=== PATIENT | female | born 1945 | race Caucasian/White ===

== ENCOUNTER 2020-09-21 15:22 | Outpatient (CLI) | payer MEDICARE, SELFPAY ==
--- NOTE | ~2020-09-21 | XR_ITS ---
XR lumbar spine 2-3V DATE: 09/21/2020 15:37 INDICATION: Low back pain radiating to both hips and legs TECHNIQUE: AP, lateral, coned lateral lumbosacral views COMPARISON: None FINDINGS: Diffuse osteopenia. Moderate levoscoliosis of the thoracolumbar spine. There is prominent degenerative change in the lowe r thoracic spine and moderate to moderately severe degenerative disc disease. The lumbar and lumbosac ral spine. No fracture or bone destruction or spondylolisthesis of the lumbar spine is evident. The lumbar pedic les appear intact. The sacroiliac joints appear intact. IMPRESSION: Moderate levoscoliosis of the thoracolumbar spine Multilevel degenerative disc disease of the lumbar spine Reviewed, dictated and finalized at location A.
== END 2020-09-21 15:23 | disposition home or self-care (01) ==
LOC: ANHIMG 15:26
PROVIDERS: PCP Family Medicine; Visit Provider Family Medicine
DX: M54.5 Low back pain (principal); M41.85 Other forms of scoliosis, thoracolumbar region; M51.36 Other intervertebral disc degeneration, lumbar region
CPT/HCPCS: 72100

== ENCOUNTER 2022-03-28 09:58 | Outpatient (CLI) | payer MEDICARE, SELFPAY ==
[2022-03-28 10:25] LABS: Alanine Aminotransferase 19 U/L (6-35); Albumin Level 4.4 g/dL (3.5-5.1); Alkaline Phosphatase 62 U/L (38-126); Anion Gap 5 mmol/L (8-16); Aspartate Amino Transferase 25 U/L (14-36); Bilirubin,Total 0.7 mg/dL (0.2-1.3); Blood Urea Nitrogen 17 mg/dL (7-17); Calcium 9.1 mg/dL (8.4-10.2); Carbon Dioxide 31 mmol/L (22-30); Chloride 98 mmol/L (98-107); Estimated Glomerular Filt Rate > 60; Glucose 98 mg/dL (65-110); Potassium 3.7 mmol/L (3.4-5.0); Sodium 134 mmol/L (137-145)
[2022-03-28 10:56] LABS: Thyroid Stimulating Hormone 0.696 uIU/mL (0.465-4.680)
== END 2022-03-28 09:59 | disposition home or self-care (01) ==
LOC: ANHLAB 10:00
PROVIDERS: PCP Family Medicine; Visit Provider Family Medicine
DX: E03.9 Hypothyroidism, unspecified (principal); I10 Essential (primary) hypertension
CPT/HCPCS: 36415; 80053; 84443

== ENCOUNTER 2022-04-28 10:00 | Outpatient (CLI) | payer MEDICARE, SELFPAY ==
--- NOTE | ~2022-04-28 | US_ITS ---
Duplex Sonography of the left extremity: Indication: Pain and swelling Findings: Sagittal and transverse B-mode images as well as color-flow imaging were performed on the l eft femoral and popliteal veins. B-mode examination was done without and with compression in the tra nsverse plane. There is good visualization of the common femoral, proximal profunda femoral, superfi cial femoral, greater saphenous, and popliteal veins. Normal flow was seen on color-flow imaging. No rmal compressibility was demonstrated. Varicose veins noted. Impression: No evidence of deep vein thrombosis involving the left femoral, greater saphenous, superficial femora l, or popliteal veins. Varicose veins noted. Reviewed, dictated and finalized at location M. E EPIDEMIOLOGIST Impression: No evidence of deep vein thrombosis involving the left femoral, greater sapheno us, superficial femoral, or popliteal veins. Varicose veins noted.
== END 2022-04-28 10:01 | disposition home or self-care (01) ==
PROVIDERS: PCP Family Medicine; Visit Provider Family Medicine
DX: I82.402 Acute embolism and thrombosis of unspecified deep veins of left lower extremity (principal); I83.92 Asymptomatic varicose veins of left lower extremity
CPT/HCPCS: 93971

== ENCOUNTER 2022-12-26 06:50 | Outpatient (CLI) | payer MEDICARE, SELFPAY ==
[2022-12-26 07:59] LABS: Hematocrit 45.1 % (37.0-47.0); Hemoglobin 14.5 g/dL (12.0-15.0); Mean Corpuscular HGB Conc 32.2 g/dl (32-36); Mean Corpuscular Hemoglobin 29.9 pg (26-34); Mean Platelet Volume 10.9 fl (7.4-10.4); Platelet Count Result 230 k/mm3 (150-375); Red Blood Count 4.85 M/mm3 (4.2-5.4); Red Cell Distribution Width 13.2 % (11.5-14.5); White Blood Count 6.4 K/mm3 (4.5-10.0)
[2022-12-26 08:00] LABS: Appearance Urine Clear (Clear); Bilirubin Urine Negative (Negative); Blood Urine Negative (Negative); Color Urine Yellow (Yellow); Glucose Urine UA Negative (Negative); Ketones Urine Negative (Negative); Leukocyte Esterase Ur Negative LEU/UL (NEGATIVE); Nitrate Urine Negative (Negative); Protein Urine Negative (Negative); Urobilinogen Urine 0.2 mg/dL (<2.0)
[2022-12-26 08:09] LABS: Alanine Aminotransferase 15 U/L (6-35); Albumin Level 4.3 g/dL (3.5-5.1); Alkaline Phosphatase 66 U/L (38-126); Anion Gap 7 mmol/L (8-16); Aspartate Amino Transferase 23 U/L (14-36); Blood Urea Nitrogen 16 mg/dL (7-17); Calcium 9.4 mg/dL (8.4-10.2); Carbon Dioxide 28 mmol/L (22-30); Chloride 98 mmol/L (98-107); Cholesterol 254 mg/dL (0-200); Estimated Glomerular Filt Rate > 60; Glucose 89 mg/dL (65-110); HDL Direct 94 mg/dL; Potassium 3.6 mmol/L (3.4-5.0); Sodium 133 mmol/L (137-145); Triglycerides 107 mg/dL (<150)
[2022-12-26 08:10] LABS: Add Urine Microscopic? NO
[2022-12-26 08:20] LABS: LDL Cholesterol Direct 106 mg/dL
[2022-12-26 08:39] LABS: Thyroid Stimulating Hormone 0.882 uIU/mL (0.465-4.680)
== END 2022-12-26 06:51 | disposition home or self-care (01) ==
PROVIDERS: PCP Family Medicine; Visit Provider Family Medicine
DX: I10 Essential (primary) hypertension (principal); E03.9 Hypothyroidism, unspecified; E78.5 Hyperlipidemia, unspecified; Z00.00 Encounter for general adult medical examination without abnormal findings
CPT/HCPCS: 36415; 80053; 80061; 81003; 84443; 85027

== ENCOUNTER 2023-09-12 13:05 | Emergency (ER) | payer MEDICARE, SELFPAY ==
--- NOTE | ~2023-09-12 | CT_ITS ---
CT head without contrast Indication: Status post fall Technique: Serial scans were obtained through the brain without the administration of contrast. Dose reduction technique was used on this scan by utilizing automated exposure control and iterative recon struction technique. The dose-length product (DLP) was 681.00 mGy-cm. Findings: There is no evidence of intracranial hemorrhage, mass lesion, or acute infarct. The ventri cles and subarachnoid spaces are dilated, consistent with mild atrophy. Low attenuation regions are seen within the periventricular white matter bilaterally, likely representing changes from chronic mi crovascular ischemic disease. There is no evidence of edema, mass effect or midline shift. The visu alized paranasal sinuses and mastoid air cells are clear. Impression: No intracranial hemorrhage, mass, or acute infarct. Atrophy and chronic white matter changes, as above. Reviewed, dictated and finalized at location . Impression: No intracranial hemorrhage, mass, or acute infarct. Atrophy and chronic white matter changes, as above.
--- NOTE | ~2023-09-12 | CT_ITS ---
EXAMINATION: CT cervical spine wo con DATE: 09/12/2023 13:38 INDICATION: Head injury. Fall. TECHNIQUE: Computed tomography (CT) of the cervical spine was performed without intravenous contrast. Automated exposure control and iterative reconstruction technique were employed. The dose-length pro duct was 681.00 mGy-cm. COMPARISON: None FINDINGS: There is a multinodular goiter with largest nodule measuring 2.4 cm. There is kyphosis of c ervical spine. There is 6 degrees levocurvature of cervical spine. There is 2 mm anterolisthesis of C 7 on T1. There is mild chronic anterior wedging of C5 vertebral body. There is mildly decreased disc height at C4-C5 and severely decreased disc height at C5-C6 and C6-C7. The following disc levels are specifically discussed: C2-C3: There is no uncovertebral joint osteoarthritis. There is moderate right and severe left facet joint osteoarthritis. There is mild left neural foraminal stenosis. There is no central canal stenosi s. C3-C4: There is no uncovertebral joint osteoarthritis. There is mild right and severe left facet join t osteoarthritis. There is mild left neural foraminal stenosis. There is no central canal stenosis. C4-C5: There is moderate bilateral uncovertebral joint osteoarthritis. There is mild bilateral facet joint osteoarthritis. There is no neural foraminal stenosis. There is mild central canal stenosis. C5-C6: There is severe bilateral uncovertebral joint osteoarthritis. There is severe right and mild l eft facet joint osteoarthritis. There is mild bilateral neural foraminal stenosis. There is mild cent ral canal stenosis. C6-C7: There is severe bilateral uncovertebral joint osteoarthritis. There is mild bilateral facet albina int osteoarthritis. There is mild bilateral neural foraminal stenosis. There is mild central canal st enosis. C7-T1: There is no uncovertebral joint osteoarthritis. There is severe bilateral facet joint osteoart hritis. There is mild bilateral neural foraminal stenosis. There is no central canal stenosis. IMPRESSION: 1. No fracture. 2. Severe cervical spondylosis. Reviewed, dictated and finalized at location A.
[2023-09-12 13:13] VITALS: BP 159/84; PULSE 37; RESP 18; TEMP 36.4; O2SAT 99
--- NOTE | 2023-09-12 14:32 | ED.FALL ---
HPI - Fall General Chief Complaint: Fall Stated Complaint: fall, hit head, pt on blood thinners Time Seen by Provider: 09/12/23 13:26 Source: patient Mode of arrival: ambulatory Limitations: no limitations History of Present Illness HPI Narrative: 78-year-old with a history of DVT on warfarin here with a complaint of fall. 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 She denies any loss of consciousness. Patient states that she bled a lot. No other injuries feel complaint: fall Onset (ago): hour(s) (1) Fall from: standing Fall witnessed: no Place fall occurred: home Loss of consciousness: none Prolonged down time: no Symptoms prior to fall: none Context: tripped/slipped Location of injury: head Related Data Home Medications Medication Instructions Recorded Confirmed acebutolol 200 mg capsule 200 mg PO DAILY 09/21/20 05/31/23 warfarin 5 mg tablet 5 mg PO DAILY 09/21/20 05/31/23 Allergies Allergy/AdvReac Type Severity Reaction Status Date / Time No Known Allergies Allergy Verified 09/12/23 13:18 Review of Systems Review of Systems: All systems reviewed & are unremarkable except as noted in HPI and below Constitutional: Constitutional: Reports no additional constitutional complaints Eyes: Eyes: Reports no additional eye complaints ENT: Reports system reviewed and no additional complaints, except as documented Cardiovascular: Cardiovascular: Reports no additional cardiovascular complaints Respiratory: Respiratory: Reports no additional respiratory complaints Musculoskeletal: Musculoskeletal: Reports no additional musculoskeletal complaints Neurologic: Reports system reviewed and no additional complaints, except as documented [facility] Past Medical History Medical History History of deep vein thrombosis HTN (hypertension) Hypothyroidism Left leg DVT Obesity Osteoarthritis Rosacea Varicose veins of legs Family History Family History Sibling Family history of cardiovascular disease Family history of malignant neoplasm of brain Family history of malignant neoplasm of breast in first degree relative Family history of malignant neoplasm of kidney Mother Cerebrovascular accident Social History Social History Smoking packs per day: 1 Smoking cigarettes per day: 20.0 Years smoked: 30 Smoking pack-years: 30.00 Smoking status: Former smoker Tobacco type: cigarettes Second hand tobacco smoke exposure: Yes Smoking end date: 04/10/93 Alcohol intake: never Substance use: never Substance use type: does not use Living arrangements: with family Occupation/Education: retired Gender identity (if verbalized by the patient): Female Sexual Orientation (if Verbalized by the Patient): Straight or Heterosexual Exam Narrative: GENERAL: Well-appearing, well-nourished, and in no acute distress. HEAD: Normocephalic, atraumatic. Has a 2 cm laceration on the vertex with very minimal bleeding EYES: PERRLA and EOMI. ENT: Nares clear, no rhinorrhea or epistaxis. Mucous membranes moist. NECK: Supple. CHEST: Clear to auscultation. No respiratory distress. HEART: Regular rate and rhythm. No murmur heard. Normal peripheral pulses. ABDOMEN: Soft, nontender, nondistended, normal active bowel sounds. EXTREMITIES: Normal range of motion. No edema. SKIN: Warm, dry, no rash. NEURO: No focal deficits. Alert and oriented x3. PSYCH: Normal mood and affect. Course Course Emergency Course: Notified patient about her CT findings. She declined blood work. Advised fall precautions. Oksana off 5 to 7 days. Vital Signs Vital signs: Vital Signs Temperature 36.4 C L 09/12/23 13:13 Pulse Rate 37 L 09/12/23 13:13 Respiratory Rate 18 09/12/23 13:13
== END 2023-09-12 14:54 | disposition home or self-care (01) ==
PROVIDERS: Emergency Provider Family Medicine; PCP Family Medicine
DX: S01.01XA Laceration without foreign body of scalp, initial encounter (principal); W19.XXXA Unspecified fall, initial encounter; Z79.01 Long term (current) use of 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; Z86.718 Personal history of other venous thrombosis and embolism; I10 Essential (primary) hypertension; Z87.891 Personal history of nicotine dependence
CPT/HCPCS: 12001; 70450; 72125; 99284

== ENCOUNTER 2023-10-05 15:30 | Emergency (ER) | payer MEDICARE, SELFPAY ==
--- NOTE | ~2023-10-05 | US_ITS ---
EXAMINATION: US venous doppler [facility] DATE: 10/05/2023 16:35 INDICATION: Left lower limb pain and swelling. TECHNIQUE: Grayscale ultrasound images without and with compression and Doppler ultrasound images of the left lower extremity veins were obtained. COMPARISON: Ultrasound 04/28/2022 FINDINGS: The visualized portions of left common femoral vein, profunda (deep) femoral vein, femoral vein, popl iteal vein, peroneal veins, posterior tibial veins, and greater saphenous vein outflow are patent. Th ere are varicose veins in the thigh and calf. IMPRESSION: 1. No deep venous thrombosis. Reviewed, dictated and finalized at location A.
[2023-10-05 15:40] VITALS: BP 185/82; PULSE 80; RESP 16; O2SAT 99
[2023-10-05 17:25] VITALS: BP 148/82; PULSE 72; RESP 18; TEMP 36.5; O2SAT 96
--- NOTE | 2023-10-05 17:41 | ED.LOWEXIN ---
HPI - Extremity Injury (Lower) General Chief Complaint: Extremity Injury, Lower Stated Complaint: LLE pain swelling Time Seen by Provider: 10/05/23 17:20 Source: patient Mode of arrival: ambulatory Limitations: no limitations History of Present Illness HPI Narrative: This is a 78 year old female that presents to the ER for left leg pain and redness. Reports she noted an area of pain to the left thigh. The area was painful and warm to touch. Reports history of DVTs which concerned her and prompted her to be seen. Denies fever, chest pain or shortness of breath. Related Data Home Medications Medication Instructions Recorded Confirmed acebutolol 200 mg capsule 200 mg PO DAILY 09/21/20 05/31/23 warfarin 5 mg tablet 5 mg PO DAILY 09/21/20 05/31/23 Allergies Allergy/AdvReac Type Severity Reaction Status Date / Time No Known Allergies Allergy Verified 10/05/23 17:25 Review of Systems Review of Systems: CONSTITUTIONAL: Denies fever SKIN: Reports redness All systems reviewed & are unremarkable except as noted in HPI and below PMFSH Past Medical History Medical History History of deep vein thrombosis HTN (hypertension) Hypothyroidism Left leg DVT Obesity Osteoarthritis Rosacea Varicose veins of legs Family History Family History Sibling Family history of cardiovascular disease Family history of malignant neoplasm of brain Family history of malignant neoplasm of breast in first degree relative Family history of malignant neoplasm of kidney Mother Cerebrovascular accident Social History Social History Smoking packs per day: 1 Smoking cigarettes per day: 20.0 Years smoked: 30 Smoking pack-years: 30.00 Smoking status: Former smoker Tobacco type: cigarettes Second hand tobacco smoke exposure: Yes Smoking end date: 04/10/93 Alcohol intake: never Substance use: never Substance use type: does not use Living arrangements: with family Occupation/Education: retired Gender identity (if verbalized by the patient): Female Sexual Orientation (if Verbalized by the Patient): Straight or Heterosexual Exam Narrative: GENERAL: Well-appearing, well-nourished, and in no acute distress. HEAD: Normocephalic, atraumatic. EYES: EOMI. CHEST: No respiratory distress. HEART: Regular rate EXTREMITIES: Normal range of motion. No edema. Varicosities present on the left upper and lower leg. Area of mild redness to the left inner thigh. Normal DP pulse. Normal sensation SKIN: Warm, dry, no rash. NEURO: No focal deficits. Alert and oriented x3. PSYCH: Normal mood and affect Course Course Emergency Course: Patient updated on her workup and agrees with plan of care Vital Signs Vital signs: Vital Signs Pulse Rate 80 10/05/23 15:40 Respiratory Rate 16 10/05/23 15:40 Blood Pressure 185/82 H 10/05/23 15:40 Pulse Oximetry 99 10/05/23 15:40 Oxygen Delivery Room Air 10/05/23 15:40 Temperature 97.7 F 10/05/23 17:25 Pulse Rate 72 10/05/23 17:25 Respiratory Rate 18 10/05/23 17:25 Blood Pressure 148/82 H 10/05/23 17:25 Pulse Oximetry 96 10/05/23 17:25 Oxygen Delivery Room Air 10/05/23 15:40 MDM - Extremity Injury (Lower) MDM Narrative Medical decision making narrative: Patient presents to the emergency department for an area of redness to the left inner thigh. Reporting history of DVT. She is afebrile and nontoxic appearing. Left lower extremity venous Doppler without evidence of DVT. Patient does have some varicose veins in the left lower extremity. She also does have mild cellulitis. Will be started on oral antibiotics. Given her 1st dose in the ED. She is instructed to follow-up with her primary provider. She was given warnings to return to the ER Differential Diagnosis Diffe
[2023-10-05] MEDS: CEPHALEXIN 500 MG CAPSULE PO (17:53)
== END 2023-10-05 17:58 | disposition home or self-care (01) ==
LOC: ANHED 18:01
PROVIDERS: Emergency Provider Physician Assistant; PCP Family Medicine
DX: L03.116 Cellulitis of left lower limb (principal); I83.92 Asymptomatic varicose veins of left lower extremity; E03.9 Hypothyroidism, unspecified; I10 Essential (primary) hypertension; Z86.718 Personal history of other venous thrombosis and embolism; Z87.891 Personal history of nicotine dependence
CPT/HCPCS: 93971; 99284; A9270

== ENCOUNTER 2024-01-11 12:27 | Outpatient (CLI) | payer BC, SELFPAY ==
[2024-01-11 12:49] LABS: Hematocrit 43.5 % (37.0-47.0); Hemoglobin 14.6 g/dL (12.0-15.0); Mean Corpuscular HGB Conc 33.6 g/dl (32-36); Mean Corpuscular Hemoglobin 30.8 pg (26-34); Mean Corpuscular Volume 91.8 fl (80-100); Mean Platelet Volume 10.3 fl (7.4-10.4); Platelet Count Result 192 k/mm3 (150-375); Red Blood Count 4.74 M/mm3 (4.2-5.4); Red Cell Distribution Width 13.2 % (11.5-14.5); White Blood Count 5.7 K/mm3 (4.5-10.0)
== END 2024-01-11 12:28 | disposition home or self-care (01) ==
LOC: ANHLAB 12:31
PROVIDERS: PCP Family Medicine; Visit Provider Physician Assistant Medical
DX: I82.402 Acute embolism and thrombosis of unspecified deep veins of left lower extremity (principal); K62.5 Hemorrhage of anus and rectum
CPT/HCPCS: 36415; 82728; 85027

== ENCOUNTER 2024-02-06 14:00 | Outpatient (CLI) | payer BC, SELFPAY ==
--- NOTE | ~2024-02-06 | XR_ITS ---
Clinical Indication: Chest pain PA and lateral views of the chest: Comparison: None Findings: The lungs are clear, without evidence of focal consolidation or pleural effusion. Cardiome diastinal silhouette is prominent. Bones and soft tissues are unremarkable. Impression: Clear lungs. Reviewed, dictated and finalized at location . Impression: Clear lungs.
== END 2024-02-06 14:01 | disposition home or self-care (01) ==
PROVIDERS: PCP Family Medicine; Visit Provider Family Medicine
DX: R07.9 Chest pain, unspecified (principal)
CPT/HCPCS: 71046

== ENCOUNTER 2024-06-05 09:04 | Outpatient (CLI) | payer BC, SELFPAY ==
--- NOTE | ~2024-06-05 | XR_ITS ---
HISTORY: M54.2 - Cervicalgia, PAIN AND TENDERNESS X 2 WEEKS COMPARISON: Reference is made to a CT examination of the cervical spine dated 09/12/2023 TECHNIQUE: 2 views of the cervical spine were performed FINDINGS: Visualization of the cervical spine to the inferior endplate of C7. Straightening of the normal curvature of the cervical spine is identified. No prevertebral soft tissue swelling is appreciated. No acute compression fracture is noted. The dens is equidistant between the pillars, without asymmetry. Air column within the trachea is midline. The visualized portions of the bilateral upper lung garnica are unremarkable. Osteophyte formation and disc space narrowing is identified for/C5 C5/C6 and C6/C7, unchanged from pr ior. IMPRESSION: Degenerative disease without acute fracture, as detailed above. Reviewed, dictated and finalized at location A. ITY DIRECTOR
--- OUTSIDE RECORDS SUMMARY | 2024-06-05 09:48 | XMS_ITS | Clinical Summary ---
Author Organization [facility] Address [address] [place] [address] Care Team Providers Care Applier Name Role Phone Katherin Turner MD Unavailable [phone] Boris Baum MD Primary Care Provider [phone] Allergies Active Allergy Reactions Criticality Noted Date Comments Verapamil Shortness of Breath High 07/23/2020 weakness Medications levothyroxine (SYNTHROID) 50 MCG tablet Take 1 tablet (50 mcg total) by mouth every morning. 12/22/2016 Active Calcium-Vitamin D3 500-400 MG-UNIT Tab Take 1 tablet by mouth 2 (two) times a day. 12/22/2016 Active calcitonin 200 UNIT/ACT nasal spray 1 spray by Nasal route every other day. 12/22/2016 Active warfarin 5 MG tablet Take 5 mg by mouth daily. Active indapamide 1.25 MG tablet Take 1 tablet by mouth daily. Active Active Problems Problem Noted Date Diagnosed Date Pure hypercholesterolemia 08/28/2020 Venous insufficiency of left leg 07/30/2020 Varicose veins of left lower extremity with pain 06/25/2020 Frequent PVCs 06/01/2020 Other secondary pulmonary hypertension ([facility]) 01/30/2020 Congestive heart failure wit h LV diastolic dysfunction, NYHA class 2 ([facility]) 01/30/2020 Sleep disturbance 01/30/2020 Hypothyroidism 12/26/2019 Essential hypertension 07/06/2017 Chronic deep vein thrombosis (DVT) of proximal vein of left lower extremity ([facility]) 12/27/2016 Anticoagulation monitoring, INR range 2-3 2016 Carotid stenosis, asymptomatic, bilateral 2016 Overview (12/26/2019): 1-49% stenosis seen on Carotid US Resolved Problems Problem Noted Date Diagnosed Date Resolved Date Health care maintenance 07/06/201712/09 Family History Medical History Relation Comments kidney cancer Brother 1 metastasized to brain Heart Brother 2 Stroke Brother 2 Asthma Father Heart Father Heart Mother Stroke Mother Asthma Other Cancer Other Stroke Other cardiovascular disease Other Breast Cancer Sister 1 Breast Cancer Sister 2 Heart Sister 3 Stroke Sister 3 Cancer Sister 4 lymph node Relation Status Comments Brother 1 (Age 70) Brother 2 (Age 80) Brother 3 Alive Father (Age 59) Mother (Age 76) Other Sister 1 (Age 53) Sister 2 Alive Sister 3 (Age 67) Sister 4 Social History Tobacco Use Types Packs/Day Years Used Date Smoking Tobacco: Former Cigarettes Q uit: 1993 Smokeless Tobacco: Never Comments:>20 years of smokin g, up to 1PPD Alcohol Use Standard Drinks/Week Comments No 0 (1 standard drink = 0.6 oz pur e alcohol) PHQ-2 Answer Date Recorded Patient Health Questionnaire-2 Score 2 06/09/2022 Comments No Sex and Gender Information Value Date Recorded Sex Assigned at Not on file Legal Sex Female 11:42 PM CDT Gender Identity Not on file Sexual Orientation Not on file 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 Not on file Not on file Last Filed Vital Signs Vital Sign Reading Time Taken Comments Blood Pressure 132/76 06/09/2022 2:41 PM 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 Pulse 72 06/09/2022 2:19 PM 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 Temperature 36.8 C (98.2 F) 06/09/2022 2:19 PM 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 Respiratory Rate 20 06/09/2022 2:19 PM 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 Oxygen Saturation 98% 06/09/2022 2:19 PM 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 Inhaled Oxygen Concentration - - Weight 78 kg (172 lb) 06/09/2022 2:19 PM 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 Height 157.5 cm (5' 2 ) 06/09/2022 2:19 PM 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 Body Mass Index 31.46 06/09/2022 2:19 PM 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 Plan of Treatment Upcoming Encounters Date Type Department Care Team (Late st Contact Info) Description 09/05/2024 8:[address] [facility] [place] [address] Lyndon Williamson MD [address] [phone] Health Maintenance Due Date Last Done Comments DTaP, Tdap and Td Vaccines (1 - Tdap) 05/03/1997 05/02/1997 Annual Medicare Wellness Visit 06/22/2008 Pneumococcal Vaccine: 65+ Years (2 of 2 - PCV) 02/01/2018 02/01/2017, 01/24/2012 RSV Immunization or 60+ Years (1 - 1-dose 75+ series) 06/22/2018 Zoster Vaccines (2 of 2) 03/11/2021 01/14/2021 PHQ-2 (Physician [place]) 06/10/2023 06/09/2022 COVID-19 Vaccine ( - season) 2023 Influenza Adult (#1) 2024 02/07/2020, 01/11/2019, 01/25/2018, Additional history exists PHQ-2 (Physician [place]) 04/10/2024 06/09/2022 Dexa Scan (General) Completed 12/12/2019 Meningococcal B Vaccine Aged Out No l onger eligible based on patient's age to complete this topic Meningococcal Vaccine Aged Out No ravi nisreen eligible based on patient's age to complete this topic RSV Immunizations Under 20 Months Aged Out No longer eligible based on patient's age to complete this topic Procedures Procedure Name Priority Date/Time Associated Diagnosis Comments BONE DENSITY/DEXA Routine 12/12/2019 9:2 5 AM CDT Age-related osteoporosis without current pathological fracture from Last 3 Months or Most Recently Relevant to Health Maintenance Results * BONE DENSITY/DEXA (12/12/2019 9:25 AM CDT) Anatomical Region Laterality Modality Bone Mammography 12/12/2019 10:1 2 AM CDT Impressions 12/12/2019 10:15 AM CDT IMPRESSION: Lumbar spine: Lowest T score is -0.3 at L1. Within normal limits. Hips: Lowest T score is -1.1 at the left femoral neck. This indicates osteopenia. Frax: 10 year Probability of major osteoporotic fracture: 16%. 10 year Probability of hip fracture: 2.4%. Interpreted By: Boy Ruiz MD, 12/12/2019 10:12 AM Narrative 12/12/2019 10:15 AM CDT Examination: Bone Density Axial Exam Date/Time: 12/12/2019 9:02 AM Reason For Exam: Postmenopausal Comparison: None Findings: DEXA bone densitometry The bone mineral density (BMD) was determined by dual-energy x-ray absorptiometry, the results are as follows: Lumbar spine: L1: 0.962 (GM/SQCM). T score: -0.3. L2: 1.061 (GM/SQCM). T score: 0.3. L3: 1.086 (GM/SQCM). T score: 0.0. L4: 1.097 (GM/SQCM). T score: 0.3. L1-L4: 1.050 (GM/SQCM). T score: 0.0. Hips: Left femoral neck: 0.728 (GM/SQCM). T score: -1.1. Right femoral neck: 0.813 (GM/SQCM). T score: -0.3. Left proximal femur: 0.882 (GM/SQCM). T score:-0.5. Right proximal femur: 0.979(GM/SQCM). T score: 0.3. Procedure Note Boy Ruiz MD - 12/12/2019 Examination: Bone Density Axial Exam Date/Time: 12/12/2019 9:02 AM Reason For Exam: Postmenopausal Comparison: None Findings: DEXA bone densitometry The bone mineral density (BMD) was determined bydual-energy x-ray absorptiometry, the results are as follows: Lumbar spine: L1: 0.962 (GM/SQCM). T score: -0.3. L2: 1.061 (GM/SQCM). T score: 0.3. L3: 1.086 (GM/SQCM). T score: 0.0. L4: 1.097 (GM/SQCM). T score: 0.3. L1-L4: 1.050 (GM/SQCM). T score: 0.0. Hips: Left femoral neck: 0.728 (GM/SQCM). T score: -1.1. Right femoral neck: 0.813 (GM/SQCM). T score: -0.3. Left proximal femur: 0.882 (GM/SQCM). T score:-0.5. Right proximal femur: 0.979(GM/SQCM). T score: 0.3. IMPRESSION: Lumbar spine: Lowest T score is -0.3 at L1. Within normal limits. Hips: Lowest T score is -1.1 at the left femoral neck. This indicatesosteopenia. Frax: 10 year Probability of major osteoporotic fracture: 16%. 10 year Probability of hip fracture: 2.4%. Interpreted By: Boy Ruiz MD, 12/12/2019 10:12 AM Carmelita Easley MD DEXA Final Resu lt from Last 3 Months or Most Recently Relevant to Health Maintenance Insurance [facility] [place] [id number] Care Teams Applier Relationship Specialty Start Date End Date Boris Baum MD [address] [place] [address] PCP - General FAMILY PRACTICE 03/03/21 Katherin Turner MD Three [facility]. [facility] [address] [place] [address] [place] [employer] Supervisor CARDIOVASCULAR DISEASE 04/10/17
--- OUTSIDE RECORDS SUMMARY | 2024-06-05 09:48 | XMS_ITS | Encounter Summary ---
Author Organization [facility] Address [address] [place] [address] Phone Care Team Providers Care Appraisal Analyst Name Role Phone Boris Baum MD Primary Care Provider Encounter Details Date Type Department Care Team (Late st Contact Info) Description 10/18/2021 Telephone [facility] Oncology [address] [place] [address] 7th [place] [id number] Claudia Frazier Social History Tobacco Use Types Packs/Day Years Used Date Smoking Tobacco: Former Cigarettes 0.8 20 1 974 - 1994 Smokeless Tobacco: Never Alcohol Use Standard Drinks/Week Comments Never 0 (1 standard drink = 0.6 oz pur e alcohol) AUDIT-C Answer Date Recorded Frequency of Alcohol Consumption Never 06/13/2018 Average Number of Drinks Not on file 019 Frequency of Binge Drinking Not on file 09/2018 Comments Unknown Sex and Gender Information Value Date Recorded Sex Assigned at Not on file Legal Sex Female 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
--- OUTSIDE RECORDS SUMMARY | 2024-06-05 09:48 | XMS_ITS | Patient Health Summary ---
Author Organization [facility] Address [address] [place] [place] [address] Care Team Providers Care Portainer Operator Name Role Phone Boris Baum MD Primary Care Provider Boris Baum MD Unavailable [phone] [facility],non-owned Affiliates and Associated Physician Practices is amultiple site organization consisting of ambulatory clinics and hospital sitesin [place], [place], [place] and [place]. This disclosure is being madepursuant to the Care Everywhere program and may not contain all information available regarding this patient. Last updated 17.[facility] Allergies * No Known Environmental Allergies(Other) -Low Criticality * No Known Food Allergy(Other) -Low Criticality * Verapamil(Shortness of Breath) -High Criticality Medications * Be aware that medications may not be up to date on this document. Alwaysverify current medications with the patient. * CALCIUM-VITAMIN D PO Take 1 tablet by mouth * indapamide (LOZOL) 1.25 MG tablet Take 1 tablet by mouth * Calcitonin, [place], (MIACALCIN NA) [place] 1 spray into the nose * warfarin (COUMADIN) 5 MG tablet Take 5 mg by mouth once daily * Cholecalciferol 1.25 MG (64608 UT) Take 50,000 Units by mouth once daily * SYNTHROID 50 MCG tablet(Started 03/15/2021) Take 1 (one) tablet by mouth daily before breakfast BRAND NAME ONLY 4 refills by 03/15/2022 Active Problems Problem Noted Date Diagnosed Date Pure hypercholesterolemia 08/28/2020 Venous insufficiency of left leg 07/30/2020 Varicose veins of left lower extremity with pain 06/25/2020 Ventricular premature beats 06/01/2020 Congestive heart failure wit h LV diastolic dysfunction, NYHA class 2 01/30/2020 Malignant neoplasm of centra l portion of right breast in female, estrogen receptor positive 06/11/2018 Essential hypertension 07/06/2017 Anticoagulation monitoring, INR range 2-3 2016 Chronic deep vein thrombosis (DVT) of proximal vein of left lower extremity 12/27/2016 jail (current[facility] use of 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 2016 Carotid stenosis, asymptomatic, bilateral 2016 Nontoxic single thyroid nodule 07/26/2016 Nontoxic goiter 01/22/2015 Malignant neoplasm of female breast 07/19/2011 Osteopenia 07/19/2011 Hypothyroidism 07/19/2011 Multinodular goiter (nontoxic) Hypothyroidism Thyroid nodule Immunizations * INFLUENZA VACCINE, TRIV. (AFLURIA, FLUZONE TRIVALENT; 6MO+) (IIV3)(Given 01/18/2016) * INFLUENZA VACCINE(Given 01/11/2019, 01/13/2018) * INFLUENZA VACCINE, HIGH-DOSE, QUADR. (FLUZONE HIGH-DOSE QUADRIVALENT; 65Y+), 0.7 ML (HD-IIV4)(Given 01/14/2021, 02/07/2020) * PNEUMOCOCCAL PPSV23(Given 02/01/2017) * PNEUMOCOCCAL PPV VACCINE(Given 06/13/2014) * Zoster Hzv Vacc Recombinant Inj Im(Given 01/14/2021) Social History Tobacco Use Types Packs/Day Years Used Date Smoking Tobacco: Former Cigarettes Q uit: 04/10/1996 Smokeless Tobacco: Never Alcohol Use Standard Drinks/Week Comments Not Currently 0 (1 standard drink = 0.6 oz pur e alcohol) Sex and Gender Information Value Date Recorded Sex Assigned at Not on file Gender Identity Not on file Sexual Orientation Not on file Last Filed Vital Signs Vital Sign Reading Time Taken Comments Blood Pressure 144/84 03/15/2021 2:04 PM GARLAND MACHINE OPERATOR Pulse 78 03/15/2021 2:04 PM GARLAND MACHINE OPERATOR Temperature 36.4 C (97.5 F) 03/15/2021 2:04 PM GARLAND MACHINE OPERATOR Respiratory Rate 16 08/07/2018 8:06 AM CDT Oxygen Saturation 95% 03/15/2021 2:04 PM GARLAND MACHINE OPERATOR Inhaled Oxygen Concentration - - Weight 79.4 kg (175 lb) 03/15/2021 2:04 PM GARLAND MACHINE OPERATOR Height 157.5 cm (5' 2 ) 03/15/2021 2:04 PM GARLAND MACHINE OPERATOR Body Mass Index 32.01 03/15/2021 2:04 PM GARLAND MACHINE OPERATOR Procedures * LAB RESULTS ORDER(Performed 05/05/2021) * DERMATOPATHOLOGY(Performed 08/24/2020) * LAB RESULTS ORDER(Performed 04/20/2020) * LAB RESULTS ORDER(Performed 06/05/2019) * LAB HISTORICAL RESULTS-ONBASE(Performed 05/11/2016) * LAB HISTORICAL RESULTS-ONBASE(Performed 04/22/2014) * LAB HISTORICAL RESULTS-ONBASE(Performed 05/06/2013) * LAB HISTORICAL RESULTS-ONBASE(Performed 11/09/2011) * LAB HISTORICAL RESULTS-ONBASE(Performed 01/26/2010) * LAB HISTORICAL RESULTS-ONBASE(Performed 07/04/2008) * LAB HISTORICAL RESULTS-ONBASE(Performed 07/04/2008) * PATHOLOGY/GENETICS HISTORICAL-ONBASE(Performed 07/04/2008) * PATHOLOGY/GENETICS HISTORICAL-ONBASE(Performed 07/04/2008) * LAB HISTORICAL RESULTS-ONBASE(Performed 01/14/2008) Results * LAB RESULTS ORDER (05/05/2021) Only the most recent of3 resultswithin the time period is included. 05/05/2021 Narrative 05/05/2021 Ordered by an unspecified provider. Scanned Document LAB - THERAPEUTIC DR LARISA MONITORING ORDERABLES * DERMATOPATHOLOGY (08/24/2020 12:00 AM CDT) Case Report Dermatopathology Report Case: [id number] Authorizing Provider: Cecilia Root MD Collected: 08/24/2020 12:00 AM Ordering Location: [facility] DermPath Lab Received: 08/25/2020 09:25 AM Pathologist: Joanne Baptiste MD Specimens: A) - Skin, left cheek B) - Skin, right cheek median 6:09 PM [facility] DERMATOPATHOLOGY [facility]ORAT[facility] Final Diagnosis Specimen A. SKIN, left cheek: ACTINIC KERATOSIS, PIGMENTED (L57.0) POST-INFLAMMATORY PIGMENT ALTERATION (L81.9) Specimen B. SKIN, right cheek median: HYPERPLASTIC (HYPERTROPHIC) ACTINIC KERATOSIS, PIGMENTED (L57.0) POST-INFLAMMATORY PIGMENT ALTERATION (L81.9) (see microscopic description) 6:09 PM [facility] DERMATOPATH[facility]Y [facility] Clinical History A: R/O melanoma vs SK vs lentigo. B: Melanoma vs SK vs lentigo. 6:09 PM [facility] DERMATOPATHOLOGY [facility] Gross Description Specimen A: Received is one formalin filled container labeled with the patient's name and designated left cheek. The specimen consists of a shave biopsy measuring [id number]. Jar 0. Specimen B: Received is one formalin filled container labeled with the patient's name and designated right cheek median. The specimen consists of a shave biopsy measuring [id number]. Jar 0. 6:09 PM [facility]ERMATOP[facility]Y [facility] Microscopic Description Specimen A. SKIN, left cheek: There is focal parakeratosis. The lower half of the epidermis shows disorderly maturation of keratinocytes with nuclear pleomorphism. There is prominent pigmentation in some of the keratinocytes. The dermis shows a focal band-like, chronic inflammatory infiltrate with occasional apoptotic keratinocytes and some basal vacuolar alteration. There is abundant melanin within melanophages around the superficial vascular plexus. MART-1/Melan-A staining highlights regular periodicity of melanocytes along the dermoepidermal junction. Specimen B. SKIN, right cheek median: There is hyperkeratosis alternating with parakeratosis. There is epidermal hyperplasia with disorderly maturation of keratinocytes with nuclear pleomorphism confined to the lower half of the epidermis. There is prominent pigmentation in some of the keratinocytes. There is abundant melanin within melanophages around the superficial vascular plexus and solar elastosis within the dermis. MART-1/Melan-A staining highlights regular periodicity of melanocytes along the dermoepidermal junction. 6:09 PM [facility] DERMATOPATHOLOGY [facility]OR[facility] Disclaimer An external and internal positive and negative controls are appropriate for the histochemical, immunohistochemical and immunofluorescence stain(s) in this case (if any), except where stated explicitly. The performance characteristics of the stain(s) cited in this report were developed and its performance characteristic determined by the Dermatopathology Laboratory at [facility], directed by Dr. Mimi Tejada. These tests need not be, and therefore are not, approved by the [place] Food and Drug Administration. The tests are used for clinical purposes. Billing Codes Specimen Charges Stain Charges 97512 15851 1 1 [id number] 79254 1 1 1 6:09 PM CDT DERMATOPATHOLOGY LABORATORY Embedded Images 1 6:09 PM CDT DERMATOPATHOLOGY LABORATORY Pathology/Cytology TISSUE SPECIMEN FROM SKIN / Unknown 08/24/2020 08/25/2020 9:25 AM CDT Miscellaneous samples (specimen) TISSUE SPECIMEN FROM SKIN / Unknown 08/24/2020 08/25/2020 9:25 AM CDT Cecilia Root MD LAB - PATHOLOGY/CYTO LOGY ORDERABLES Performing Organization Address [facility]/ZIP Co de Phone Number DERMATOPATHOLOGY LABORATORY [facility] Department of Dermatology [facility] [address] [phone] * LAB HISTORICAL RESULTS-ONBASE (05/11/2016) Only the most recent of8 resultswithin the time period is included. 05/11/2016 Historical Provider LAB - CHEMISTRY O JESSEE Performing Organization Address City/[facility]/ZIP Co de Phone Number [facility] [address] * PATHOLOGY/GENETICS HISTORICAL-ONBASE (07/04/2008) Only the most recent of2 resultswithin the time period is included. 07/04/2008 Historical Provider LAB - CHEMISTRY O NOLAERAMEREDITH Performing Organization Address City/[facility]/ZIP Co de Phone Number [facility] Care Teams Portainer Operator Relationship Specialty Start Date End Date Boris Baum MD [address] [place] [id number] PCP - General 08/24/20 Boris Baum MD [address] [place] [address] 08/24/20
--- OUTSIDE RECORDS SUMMARY | 2024-06-05 09:48 | XMS_ITS | Referral Summary ---
Author Organization [facility] Address [address] [place] [address] Care Team Providers Care Pewter Fabricator Name Role Phone Boris Baum MD Primary Care Provider [phone] Boris Baum MD Unavailable Source Comments [facility],non-owned Affiliates and Associated Physician Practices is amultiple site organization consisting of ambulatory clinics and hospital sitesin [place], [place], [place] and [place]. This disclosure is being madepursuant to the Care Everywhere program and may not contain all information available regarding this patient. Last updated 17.[facility] Allergies Active Allergy Reactions Criticality Noted Date Comments No Known Environmental Allergies Other Low 08/06/2012 None known. No Known Food Allergy Other Low 08/06/2012 None known. Verapamil Shortness of Breath High 07/23/2020 weakness Medications * Be aware that medications may not be up to date on this document. Alwaysverify current medications with the patient. Medication Sig Dispensed Refills Start Date End Date Status CALCIUM-VITAMIN D PO Take 1 tablet by mouth Active indapamide (LOZOL) 1.25 MG tablet Take 1 tablet by mouth Active Calcitonin, [place], (MIACALCIN NA) [place] 1 spray into the nose Active warfarin (COUMADIN) 5 MG tablet Take 5 mg by mouth once daily Active Cholecalciferol 1.25 MG (43367 UT) Take 50,000 Units by mouth once daily Active SYNTHROID 50 MCG tabletIndications:No ntoxic goiter,Acquired hypothyroidism,Nonto xic single thyroid nodule,Multinodular goiter (nontoxic),Thyroid nodule Take 1 (one) tablet by mouth daily before breakfast BRAND NAME ONLY 90 tablet 4 03/15/2021 Active Active Problems Problem Noted Date Diagnosed [...] proximal vein of left lower extremity 12/27/2016 [facility] (current) use of 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 2016 Carotid stenosis, asymptomatic, bilateral 2016 Overview (03/03/2020): 1-49% stenosis seen on Carotid US Nontoxic single thyroid nodule 07/26/2016 Nontoxic goiter 01/22/2015 Malignant neoplasm of female breast 07/19/2011 Osteopenia 07/19/2011 Hypothyroidism 07/19/2011 Multinodular goiter (nontoxic) Hypothyroidism Thyroid nodule Immunizations Name Administration Dates Next Due INFLUENZA VACCINE, TRIV. (AF LURIA, FLUZONE TRIVALENT; 6MO+) (IIV3) 01/18/2016 INFLUENZA VACCINE 01/11/2019,01/13/2018 INFLUENZA VACCINE, HIGH-DOSE , QUADR. (FLUZONE HIGH-DOSE QUADRIVALENT; 65Y+), 0.7 ML (HD-IIV4) 01/14/2021,02/07/2020 PNEUMOCOCCAL PPSV23 02/01/2017 PNEUMOCOCCAL PPV VACCINE 06/13/2014 Zoster Hzv Vacc Recombinant Inj Im 01/14/2021 Social History Tobacco Use Types Packs/Day Years [...] Comments Blood Pressure 144/84 03/15/2021 2:04 PM GUN TESTER Pulse 78 03/15/2021 2:04 PM GUN TESTER Temperature 36.4 C (97.5 F) 03/15/2021 2:04 PM GUN TESTER Respiratory Rate 16 08/07/2018 8:06 AM CDT Oxygen Saturation 95% 03/15/2021 2:04 PM GUN TESTER Inhaled Oxygen Concentration - - Weight 79.4 kg (175 lb) 03/15/2021 2:04 PM GUN TESTER Height 157.5 cm (5' 2 ) 03/15/2021 2:04 PM GUN TESTER Body Mass Index 32.01 03/15/2021 2:04 PM GUN TESTER Plan of Treatment Not on file Insurance Payer Benefit Plan / Group Subscriber ID Effective Dates Phone Address Type ANTHEM ANTHEM MEDICARE ADV PPO/HMO [id number] 11/09/2019-Presen t [phone] [address] [place] [address] Medicare-M anaged Care ANTHEM ANTHEM MEDICARE ADV PPO/HMO [id number] 11/09/2019-Presen t [address] [place] [address] Medicare-M anaged Care ANTHEM ANTHEM MEDICARE ADV PPO/HMO [id number] 11/09/2019-Presen t [address] [place] [address] Medicare-M anaged Care ANTHEM ANTHEM MEDICARE ADV PPO/HMO [id number] 11/09/2019-Presen t [address] [place] [address] Medicare-M anaged Care ANTHEM ANTHEM MEDICARE ADV PPO/HMO [id number] 11/09/2019-Presen t [address] [place] [address] Medicare-M anaged Care ANTHEM ANTHEM MEDICARE ADV PPO/HMO [id number] 11/09/2019-Presen t [address] [place] [address] Medicare-M anaged Care ANTHEM ANTHEM MEDICARE ADV PPO/HMO [id number] 11/09/2019-Presen t [address] [place] [address] Medicare-M anaged Care ANTHEM ANTHEM MEDICARE ADV PPO/HMO [id number] 11/09/2019-Presen t [phone] [address] [place] [address] Medicare-M anaged Care ANTHEM ANTHEM MEDICARE ADV PPO/HMO [id number] 11/09/2019-Presen t [address] [place] [address] Medicare-M anaged Care ANTHEM ANTHEM MEDICARE ADV PPO/HMO [id number] 11/09/2019-Presen t [phone] [address] [place] [address] Medicare-M anaged Care ANTHEM ANTHEM MEDICARE ADV PPO/HMO [id number] 11/09/2019-Presen t [phone] [address] [place] [address] Medicare-M anaged Care ANTHEM ANTHEM MEDICARE ADV PPO/HMO [id number] 11/09/2019-Presen t [address] [place] [address] Medicare-M anaged Care Care Teams Pewter Fabricator Relationship Specialty Start Date End Date Boris Baum MD [address] [place] [address] PCP - General 08/24/20 Boris Baum MD [address] [place] [address] 08/24/20
--- OUTSIDE RECORDS SUMMARY | 2024-06-05 09:48 | XMS_ITS | Clinical Summary ---
Author Organization [facility] Address [address] [facility] [place] [address] Care Team Providers Care Diesel Maintenance Electrician Name Role Phone Boris Baum MD Primary Care Provider [phone] Boris Baum MD Unavailable [phone] Source Comments [facility],non-owned Affiliates and Associated Physician Practices is amultiple site organization consisting of ambulatory clinics and hospital sitesin [place], [place], [place] and [place]. This disclosure is being madepursuant to the Care Everywhere program and may not contain all information available regarding this patient. Last updated 17.[facility] Allergies Active Allergy Reactions Criticality Noted Date [...] Take 1 tablet by mouth Active Calcitonin, [place], (MIACALCIN NA) [place] 1 spray into the nose Active warfarin (COUMADIN) 5 MG tablet Take 5 mg by mouth once daily Active Cholecalciferol 1.25 MG (01063 UT) Take 50,000 Units by mouth once [...] proximal vein of left lower extremity 12/27/2016 [facility] term [facility] (current) use of 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 2016 Carotid stenosis, [...] Zoster Hzv Vacc Recombinant Inj Im 01/14/2021 Family History Medical History Relation Name Comments Cancer Brother 1 colon Cancer Brother 2 kidney CVA Brother 3 Hypertension Brother 3 CAD (Coronary Artery Disease) Mother CVA Mother Cancer Sister 1 breast; Status: Cancer Sister 2 breast Cancer Sister 3 lymohoma Diabetes Sister 4 Hypertension Sister 4 Diabetes Sister 5 Status: d Hypertension Sister 5 Status: d Thyroid Disease Neg Hx Relation Name Status Comments Brother 1 Brother 2 Brother 3 Mother Sister 1 Sister 2 Sister 3 Sister 4 Sister 5 Social History Tobacco Use Types Packs/Day Years [...] Comments Blood Pressure 144/84 03/15/2021 2:04 PM INTERACTIVE MEDIA MARKETING STRATEGIST Pulse 78 03/15/2021 2:04 PM INTERACTIVE MEDIA MARKETING STRATEGIST Temperature 36.4 C (97.5 F) 03/15/2021 2:04 PM INTERACTIVE MEDIA MARKETING STRATEGIST Respiratory Rate 16 08/07/2018 8:06 AM CDT Oxygen Saturation 95% 03/15/2021 2:04 PM INTERACTIVE MEDIA MARKETING STRATEGIST Inhaled Oxygen Concentration - - Weight 79.4 kg (175 lb) 03/15/2021 2:04 PM INTERACTIVE MEDIA MARKETING STRATEGIST Height 157.5 cm (5' 2 ) 03/15/2021 2:04 PM INTERACTIVE MEDIA MARKETING STRATEGIST Body Mass Index 32.01 03/15/2021 2:04 PM INTERACTIVE MEDIA MARKETING STRATEGIST Plan of Treatment Health Maintenance Due Date Last Done Comments BONE DENSITY TESTING 1945 DTAP/TDAP/TD VACCINES (1 - Tdap) 06/22/1962 PNEUMOCOCCAL VACCINE 50+ (2 of 2 - PCV) 02/01/2018 02/01/2017, 06/13/2014 Respiratory Syncytial Virus (RSV) Vaccine Pt: or over 60 yrs (1 - 1-dose 75+ series) 06/22/2018 ZOSTER VACCINE (2 of 2) 03/11/2021 01/14/2021 COVID-19 VACCINE (1 - 2023- season) 2023 INFLUENZA VACCINE (#1) 2023 , 02/07/2020, 01/11/2019, Additional history exists DEPRESSION SCREENING 04/10/2024 MEDICARE AWV CALENDAR YEAR 2024 HEPATITIS B VACCINE Aged Out No longe r eligible based on patient's age to complete this topic HIB VACCINE Aged Out No longer eligi ble based on patient's age to complete this topic HPV VACCINE Aged Out No longer eligi ble based on patient's age to complete this topic MENINGOCOCCAL (Group B) VACCINE Aged Out No longer eligible based on patient's age to complete this topic MENINGOCOCCAL VACCINE Aged Out No ravi nisreen eligible based on patient's age to complete this topic Insurance Payer Benefit Plan / Group Subscriber ID Effective Dates Phone Address Type ANTHEM ANTHEM MEDICARE ADV PPO/HMO [id number] 11/09/2019-Presen t [address] [place] [address] Medicare-M anaged Care ANTHEM ANTHEM MEDICARE ADV PPO/HMO [id number] 11/09/2019-Presen t [address] [place] [address] Medicare-M anaged Care ANTHEM ANTHEM MEDICARE ADV PPO/HMO [id number] 11/09/2019-Presen t [address] [place] [address] Medicare-M anaged Care ANTHEM ANTHEM MEDICARE ADV PPO/HMO [id number] 11/09/2019-Presen t [address] [place] [address] Medicare-M anaged Care ANTHEM ANTHEM MEDICARE ADV PPO/HMO [id number] 11/09/2019-Presen t [address] [place] [address] Medicare-M anaged Care ANTHEM ANTHEM MEDICARE ADV PPO/HMO [id number] 11/09/2019-Presen t [address] [place] [address] Medicare-M anaged Care ANTHEM ANTHEM MEDICARE ADV PPO/HMO [id number] 11/09/2019-Presen t [address] [place] [address] Medicare-M anaged Care ANTHEM ANTHEM MEDICARE ADV PPO/HMO [id number] 11/09/2019-Presen t [address] [place] [address] Medicare-M anaged Care ANTHEM ANTHEM MEDICARE ADV PPO/HMO [id number] 11/09/2019-Presen t [address] [place] [address] Medicare-M anaged Care ANTHEM ANTHEM MEDICARE ADV PPO/HMO [id number] 11/09/2019-Presen t [address] [place] [address] Medicare-M anaged Care [place] MEDICARE ADV PPO/HMO [id number] 11/09/2019-Presen t [phone] [address] [place] [address] Medicare-M anaged Care ANTHEM [place] MEDICARE ADV PPO/HMO [id number] 11/09/2019-Presen t [address] [place] [address] Medicare-M anaged Care Care Teams Diesel Maintenance Electrician Relationship Specialty Start Date End Date Boris Baum MD [address] [place] [address] PCP - General 08/24/20 Boris Baum MD [address] [place] [address] 08/24/20
--- OUTSIDE RECORDS SUMMARY | 2024-06-05 09:48 | XMS_ITS | Referral Summary ---
Author Organization [facility] Address [address] [place] [address] Phone Care Team Providers Care Glove Turner And Former Name Role Phone Boris Baum MD Primary Care Provider Encounters Date Type Department Care Team Description 05/27/2024 Anticoagulation Visit [facility] Cardiology [address] [place] [address] [place] [phone] Bg Leon RN Chronic deep vein thrombosis (DVT) of proximal vein of left lower extremity (HCC) (Primary Dx); production officer (current) use of 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 05/27/2024 9:15 AM FORESTRY FARM LABORER Office Visit [facility] Cardiology [address] [place] [address] [place] [phone] Fredy Rogers MD Essential hypertension (Primary Dx); Chronic deep vein thrombosis (DVT) of proximal vein of left lower extremity (HCC); production officer (current) use of 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; PVC's (premature ventricular contractions); Varicose veins of both lower extremities with pain 05/13/2024 Anticoagulation Visit [facility] Cardiology [address] [place] [address] [address] [place] [phone] Margareth Bear RN Chronic deep vein thrombosis (DVT) of proximal vein of left lower extremity (HCC) (Primary Dx); production officer (current) use of 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 04/29/2024 Anticoagulation Visit [facility] Cardiology [address] [place] [address] [address] [place] [phone] Quita Epperson RN Chronic deep vein thrombosis (DVT) of proximal vein of left lower extremity (HCC) (Primary Dx); production officer (current) use of 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 04/23/2024 Telephone [place] [address] [place] [phone] Fredy Rogers MD Out of range INR 04/22/2024 Anticoagulation Visit [place] [address] [place] [phone] Bg Leon RN Chronic deep vein thrombosis (DVT) of proximal vein of left lower extremity (HCC) (Primary Dx); custodial (current) use of 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 04/11/[address] [phone] Fredy Rogers MD 04/08/2024 Anticoagulation Visit [address] [phone] Bg Leon RN Chronic deep vein thrombosis (DVT) of proximal vein of left lower extremity (HCC) (Primary Dx); production officer (current) 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 of 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 03/25/2024 Anticoagulation Visit [address] [phone] Bg Leon RN Chronic deep vein thrombosis (DVT) of proximal vein of left lower extremity (HCC) (Primary Dx); custodial (current) use of 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 03/11/2024 Anticoagulation Visit [place] [address] [place] [phone] Bg Leon RN Chronic deep vein thrombosis (DVT) of proximal vein of left lower extremity (HCC) (Primary Dx); custodial (current) use of 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 from Last 3 Months Allergies No known active allergies Medications calcium carbonate-vitam in D3 500 mg(1,250mg) -400 unit tablet Take 1 tablet by mouth . 7 Active levothyroxine (SYNTHROID, LEVOTHROID) 50 mcg tablet Take 1 tablet (50 mcg total) by mouth 7 Active indapamide (LOZOL) 2.5 mg tablet Take 1 tablet (2.5 mg total) by mouth Active calcitonin (MIACALCIN) 200 unit/actuation nasal spray Administer 1 spray into affected nostril(s) 7 Active HYDROcodone-duglas taminophen (NORCO) 5-325 mg per tabletIndicatio ns:Pain Take 1 tablet by mouth every 6 (six) hours as needed for pain 20 tablet 2 Active warfarin (COUMADIN) 5 mg tabletIndicatio ns:Prevention of Recurrent Venous Thrombosis in Malignancy TAKE 5 MG PO DAILY 90 tablet 5 Active losartan (Cozaar) 25 mg tablet Take 1 tablet (25 mg total) by mouth daily Active Active Problems Problem Noted Date Diagnosed Date Varicose veins of both lower extremities with pa in 10/03/2022 Assessment & Plan (10/25/2022 9:26 AM CDT): Bulky varicosities to left lower extremity, with minimal discomfort. Patient compliant with compression therapy, leg elevation. Will initiate daily compression therapy, leg elevation, will also refer patient for compression pump. Patient to follow-up in the office on as-needed basis PVC's (premature ventricular contractions) 09/28 Multinodular goiter (nontoxic) 06/12/2019 Malignant neoplasm of centra l portion of right breast in female, estrogen receptor positive 06/11/2018 Essential hypertension 07/06/2017 Chronic deep vein thrombosis (DVT) of proximal vein of left lower extremity 12/27/2016 Assessment & Plan (10/25/2022 9:25 AM CDT): No concern for acute DVT on exam today. Continue compression therapy, warfarin regimen per PCP custodial (current) use of 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 2016 Osteopenia 07/19/2011 Hypothyroidism 07/19/2011 Immunizations Immunization Administration Dates Next Due Influenza, Unspecified 01/11/2019,01/13/2018 Pneumococcal, Unspecified 06/13/2014 Social History Tobacco Use Types Packs/Day Years Used Date Smoking Tobacco: Former Cigarettes 0.8 20 1 974 - 1994 Smokeless Tobacco: Never Tobacco Cessation:Counseling Given: Not Answered Alcohol Use Standard Drinks/Week Comments Never 0 (1 standard drink = 0.6 oz pur e alcohol) AUDIT-C Answer Date Recorded Frequency of Alcohol Consumption Not on file 11/17/2021 Q2: How many drinks containi ng alcohol do you have on a typical day when you are drinking? Patient does not drink Q3: How often do you have si x or more drinks on one occasion? 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 FARM LABORER Gender Identity Not on file Sexual Orientation Not on file Last Filed Vital Signs Vital Sign Reading Time Taken Comments Blood Pressure 130/72 05/27/2024 8:49 AM FORESTRY FARM LABORER Pulse 65 05/27/2024 8:49 AM FORESTRY FARM LABORER Temperature 36.4 C (97.5 F) 11/22/2021 11:05 AM CDT Respiratory Rate 20 11/22/2021 11:50 AM CDT Oxygen Saturation 97% 05/27/2024 8:49 AM FORESTRY FARM LABORER Inhaled Oxygen Concentration - - Weight 74.4 kg (164 lb) 05/27/2024 8:49 AM FORESTRY FARM LABORER Height 162.6 cm (5' 4 ) 05/27/2024 8:49 AM FORESTRY FARM LABORER Body Mass Index 28.15 05/27/2024 8:49 AM FORESTRY FARM LABORER Plan of Treatment Not on file Medical Devices Implanted Type Area Life Skills Coach Device Identifier Shelf Expiration Date Model / Serial / Lot Other - See Comments Other - see comments Right: Breast Description:Right breast imp lant Procedures Procedure Name Priority Date/Time Associated Diagnosis Comments PROTIME-INR Routine 05/27/2024 PROTIME-INR Routine 05/13/2024 PROTIME-INR Routine 04/29/2024 PROTIME-INR Routine 04/22/2024 PROTIME-INR Routine 04/08/2024 PROTIME-INR Routine 03/25/2024 PROTIME-INR Routine 03/11/2024 from Last 3 Months Results * (ABNORMAL) Protime-INR (05/27/2024) INR 2.10(A) 0.90 - 1.10 EXTERNAL LAB Blood Result [facility] Provider MD LAB BLOOD ORDERABLES Clarice l Result EXTERNAL LAB * (ABNORMAL) Protime-INR (05/13/2024) INR 2.50(A) 0.90 - 1.10 EXTERNAL LAB Blood Result [facility] Provider MD LAB BLOOD ORDERABLES Clarice l Result EXTERNAL LAB * (ABNORMAL) Protime-INR (04/29/2024) INR 2.00(A) 0.90 - 1.10 EXTERNAL LAB Blood Result [facility] Provider MD LAB BLOOD ORDERABLES Clarice l Result EXTERNAL LAB * (ABNORMAL) Protime-INR (04/22/2024) INR 1.70(A) 0.90 - 1.10 EXTERNAL LAB Blood Result [facility] Provider MD LAB BLOOD ORDERABLES Clarice l Result EXTERNAL LAB * (ABNORMAL) Protime-INR (04/08/2024) INR 2.20(A) 0.90 - 1.10 EXTERNAL LAB Blood Result [facility] Provider MD LAB BLOOD ORDERABLES Clarice l Result EXTERNAL LAB * (ABNORMAL) Protime-INR (03/25/2024) INR 1.80(A) 0.90 - 1.10 EXTERNAL LAB Blood Historical Provider LAB BLOOD ORDERABLES Clarice l Result EXTERNAL LAB * (ABNORMAL) Protime-INR (03/11/2024) INR 2.20(A) 0.90 - 1.10 EXTERNAL LAB Blood Historical Provider LAB BLOOD ORDERABLES Clarice l Result EXTERNAL LAB from Last 3 Months Insurance [facility] PPO [facility] PPO ANTHEM MEDICARE HMO PPO Care Teams Glove Turner And Former Relationship Specialty Start Date End Date Boris Baum MD [address] [facility] [address] [place] [address] PCP - General Family Medicine 09/28/20
--- OUTSIDE RECORDS SUMMARY | 2024-06-05 09:48 | XMS_ITS | Encounter Summary ---
Author Organization [facility] Healthcare Address [address] [place] [address] Care Team Providers Care Environmental Compliance Manager Name Role Phone Boris Baum MD Primary Care Provider Encounter Details Date Type Department Care Team (Late st Contact Info) Description 07/23/2023 Orders Only [facility] Health Information Management [address] [place] [id number] Scanning, Provider Social History Tobacco Use Types Packs/Day Years Used Date Smoking Tobacco: Former Cigarettes 0.8 20 1 974 - 1993 Smokeless Tobacco: Never Alcohol Use Standard Drinks/Week [...] on file Legal Sex Female 7:06 AM 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 Gender Identity Not on file Sexual Orientation Not on file documented as of this encounter Plan of Treatment Not on file documented as of this encounter Procedures Procedure Name Priority Date/Time Associated Diagnosis Comments SCAN - LABS 07/23/2023 documented in this encounter Results * SCAN - LABS (07/23/2023) us Provider Scanning Final Result documented in this encounter Visit Diagnoses Not on filedocumented in this encounter Care Teams Environmental Compliance Manager Relationship Specialty Start Date End Date Boris Baum MD [address] [facility] [address] [place] [address] PCP - General Family Medicine 09/28/20 documented as of this encounter
--- OUTSIDE RECORDS SUMMARY | 2024-06-05 09:48 | XMS_ITS | Encounter Summary ---
Author Organization [facility] Health Address [address] [place] [address] Care Team Providers Care Software Application Tester Name Role Phone Boris Baum MD Primary Care Provider [phone] Boris Baum MD Unavailable [phone] Encounter Details Date Type Department Care Team (Late st Contact Info) Description 11/23/2021 Telephone [facility] [address] [place] [address] Darrian Hurst MD [address] [place] [address] [place] [address] Social History Tobacco Use Types Packs/Day Years [...] on file documented as of this encounter Miscellaneous Notes * Telephone Encounter - Sabra Glaser - 11/23/2021 2:19 PM CDT Current Provider name:SHANTE Reason for call: Pt is requesting a referral to see an endocrine doctor near her home. She can't continue to make the drive from [place]. The doctor's name is Francisco Javier Wilburn MD and he is located at [address] [place] [address]. His phone number is [phone]. She did not have the fax number. Patient Call Back number: [phone] documented in this encounter Plan of Treatment Not on file documented as of this encounter Visit Diagnoses Not on filedocumented in this encounter Care Teams Software Application Tester Relationship Specialty Start Date End Date Boris Baum MD [address] [place] [address] PCP - General 08/24/20 Boris Baum MD [address] [place] [address] 08/24/20 documented as of this encounter
--- OUTSIDE RECORDS SUMMARY | 2024-06-05 09:48 | XMS_ITS | Encounter Summary ---
Author Organization 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 Gender Identity Not on file Sexual Orientation Not on file documented as of this encounter Plan of Treatment Not on file documented as of this encounter Procedures Procedure Name Priority Date/Time Associated Diagnosis Comments SCAN - LABS 06/14/2023 documented in this encounter Results * SCAN - LABS (06/14/2023) us Provider Scanning Final Result documented in this encounter Visit Diagnoses Not on filedocumented in this encounter Care Teams Skewer Up Relationship Specialty Start Date End Date Boris Baum MD [address] [facility] [address] [place] [address] PCP - General Family Medicine 09/28/20 documented as of this encounter
--- OUTSIDE RECORDS SUMMARY | 2024-06-05 09:48 | XMS_ITS | Encounter Summary ---
Author Organization [facility] Address [address] [place] [address] Care Team Providers Care Yard Laborer Name Role Phone Boris Baum MD Primary Care Provider [phone] Katherin Turner MD Unavailable [phone] Carmelita Easley MD Primary Care Provider [phone] Boris Baum MD Primary Care Provider [phone] Encounter Details Date Type Department Care Team (Latest Contact Info) Description 02/13/2018 Abstract [facility] , Nishant Bledsoe MD Social History Tobacco Use Types Packs/Day Years Used Date Smoking Tobacco: Former Cigarettes Q uit: 2009 Smokeless Tobacco: Never Comments:quit about 7 years ago after >20 years of smoking, up to 1PPD Alcohol Use Standard Drinks/Week Comments No 0 (1 standard drink = 0.6 oz pur e alcohol) Comments Unknown Sex and Gender Information Value Date Recorded Sex Assigned at Not on file Legal Sex Female 11:42 PM CDT Gender Identity Not on file Sexual Orientation Not on file 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 Not on file Not on file documented as of this encounter Plan of Treatment Upcoming Encounters Date Type Department Care Team (Late st Contact Info) Description 09/05/2024 8:00 AM CDT Appointment [facility] [place] [address] Lyndon [place] MD [facility] [address] documented as of this encounter Visit Diagnoses Not on filedocumented in this encounter Care Teams Yard Laborer Relationship Specialty Start Date End Date Boris Baum MD [address] [facility] [address] [place] [address] PCP - General FAMILY PRACTICE 02/27/17 06/12/19 Carmelita Easley MD [facility]. [facility] [address] [place] [address] PCP - General FAMILY PRACTICE 06/13/19 03/02/21 Boris Baum MD [address] [facility] [address] [place] [address] PCP - General FAMILY PRACTICE 03/03/21 Katherin Turner MD [facility]. [facility] [address] [place] [address] Ting Stress Test Technician CARDIOVASCULAR DISEASE 04/10/17 documented as of this encounter
--- OUTSIDE RECORDS SUMMARY | 2024-06-05 09:48 | XMS_ITS | Encounter Summary ---
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 Gender Identity Not on file Sexual Orientation Not on file documented as of this encounter Plan of Treatment Not on file documented as of this encounter Procedures Procedure Name Priority Date/Time Associated Diagnosis Comments SCAN - LABS 05/24/2023 documented in this encounter Results * SCAN - LABS (05/24/2023) us Provider Scanning Final Result documented in this encounter Visit Diagnoses Not on filedocumented in this encounter Care Teams Wire Stockkeeper Relationship Specialty Start Date End Date Boris Baum MD [address] [facility] [address] [place] [address] PCP - General Family Medicine 09/28/20 documented as of this encounter
--- OUTSIDE RECORDS SUMMARY | 2024-06-05 09:48 | XMS_ITS | Encounter Summary ---
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 Gender Identity Not on file Sexual Orientation Not on file documented as of this encounter Plan of Treatment Not on file documented as of this encounter Procedures Procedure Name Priority Date/Time Associated Diagnosis Comments SCAN - RADIOLOGY/IMAGING 08/09/2018 documented in this encounter Results * SCAN - RADIOLOGY/IMAGING (08/09/2018) Anatomical Region Laterality Modality Other us Provider Scanning Final Result documented in this encounter Visit Diagnoses Not on filedocumented in this encounter Care Teams Supervisor Drilling And Shooting Relationship Specialty Start Date End Date Boris Baum MD [address] [facility] [address] [place] [address] PCP - General Family Medicine 06/13/18 06/11/19 Boris Baum MD [address] [facility] [address] [place] [address] PCP - General Family Medicine 09/28/20 documented as of this encounter
--- OUTSIDE RECORDS SUMMARY | 2024-06-05 09:48 | XMS_ITS | Clinical Summary ---
Author Organization [facility] Address [address] [place] [address] Phone Care Team Providers Care Managed Security Sales Consultant Name Role Phone Boris Baum MD Primary Care Provider Allergies No known active allergies Medications calcium [...] Continue compression therapy, warfarin regimen per PCP FDC (current) use of 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 2016 Osteopenia 07/19/2011 Hypothyroidism 07/19/2011 Encounters Date Type Department Care Team Description 05/27/2024 9:15 AM CAR BODY DESIGNER Office Visit [facility] [address] [facility] [address] [place] [address] Fredy Rogers MD Essential hypertension (Primary Dx); Chronic deep vein thrombosis (DVT) of proximal vein of left lower extremity (HCC); FDC (current) use of 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; PVC's (premature ventricular contractions); Varicose veins of both lower extremities with pain 05/27/2024 Anticoagulation Visit [facility] [address] [facility] [address] [place] [address] Bg Leon RN Chronic deep vein thrombosis (DVT) of proximal vein of left lower extremity (HCC) (Primary Dx); intermodal dispatcher (current) use of 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 05/13/2024 Anticoagulation Visit [facility] [address] [facility] [address] [place] [address] Margareth Bear RN Chronic deep vein thrombosis (DVT) of proximal vein of left lower extremity (HCC) (Primary Dx); intermodal dispatcher (current) use of 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 04/29/2024 Anticoagulation Visit [facility] [address] [place] [address] Quita Epperson RN Chronic deep vein thrombosis (DVT) of proximal vein of left lower extremity (HCC) (Primary Dx); FDC (current) use of 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 04/23/2024 Telephone [place] [address] [place] [phone] Fredy Rogers MD Out of range INR 04/22/2024 Anticoagulation Visit [place] [address] [place] [phone] Bg Leon RN Chronic deep vein thrombosis (DVT) of proximal vein of left lower extremity (HCC) (Primary Dx); FDC (current) use of 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 04/11/2024 Telephone [place] [address] [place] [phone] Fredy Rogers MD 04/08/2024 Anticoagulation Visit [place] [address] [place] [phone] Bg Leon RN Chronic deep vein thrombosis (DVT) of proximal vein of left lower extremity (HCC) (Primary Dx); FDC (current) use of 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 03/25/2024 Anticoagulation Visit [place] [address] [place] [phone] Bg Leon RN Chronic deep vein thrombosis (DVT) of proximal vein of left lower extremity (HCC) (Primary Dx); FDC (current) use of 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 03/11/2024 Anticoagulation Visit [place] [address] [place] [phone] Bg Leon RN Chronic deep vein thrombosis (DVT) of proximal vein of left lower extremity (HCC) (Primary Dx); FDC (current) use of 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 from Last 3 Months Immunizations Immunization Administration Dates Next Due Influenza, Unspecified 01/11/2019,01/13/2018 Pneumococcal, Unspecified 06/13/2014 Surgical History Surgery Date Site/Laterality Comments APPENDECTOMY HYSTERECTOMY OOPHORECTOMY COLONOSCOPY BREAST BIOPSY MASTECTOMY BREAST RECONSTRUCTION TONSILLECTOMY Medical History Medical History Date Comments Breast cancer (HCC) Thyroid disease Arthritis Family History Medical History Relation Name Comments Cancer Brother 1 Cancer Brother 2 Asthma Father Stroke Mother Breast cancer Sister 1 Breast cancer Sister 2 Relation Name Status Comments Brother 1 (Age 80) Brother 2 (Age 72) Brother 3 Alive Father (Age 59) Mother (Age 76) Sister 1 (Age 53) 2 sisters with breast cancer, both were in late 40's when daignosed Sister 2 (Age 65) Sister 3 Alive Sister 4 Alive Social History Tobacco Use Types Packs/Day Years Used Date Smoking Tobacco: Former Cigarettes 0.8 20 1 974 - 1993 Smokeless Tobacco: Never Tobacco Cessation:Counseling Given: Not [...] on file Legal Sex Female 7:06 AM CAR BODY DESIGNER Gender Identity Not on file Sexual Orientation Not on file Obstetrics History Last Filed Vital Signs Vital Sign Reading Time Taken Comments Blood Pressure 130/72 05/27/2024 8:49 AM CAR BODY DESIGNER Pulse 65 05/27/2024 8:49 AM CAR BODY DESIGNER Temperature 36.4 C (97.5 F) 11/22/2021 11:05 AM CDT Respiratory Rate 20 11/22/2021 11:50 AM CDT Oxygen Saturation 97% 05/27/2024 8:49 AM CAR BODY DESIGNER Inhaled Oxygen Concentration - - Weight 74.4 kg (164 lb) 05/27/2024 8:49 AM CAR BODY DESIGNER Height 162.6 cm (5' 4 ) 05/27/2024 8:49 AM CAR BODY DESIGNER Body Mass Index 28.15 05/27/2024 8:49 AM CAR BODY DESIGNER Plan of Treatment Health Maintenance Due Date Last Done Comments Depression Screening 1945 DTaP/Tdap/Td Vaccine (1 - Tdap) 06/22/1954 Hepatitis B Screening 06/22/1961 Pneumococcal vaccine 65+ (1 of 1 - PCV) 06/22/1993 06/13/2014 Well Visit 65+ 06/22/2008 Osteoporosis Screening-Bone Density Scan 12/11/2021 12/12/2019 Fall Risk Assessment 11/22/2022 11/22/2021 Covid-19 Vaccine (3 2023-2 5 season) 2023 06/06/2020, 05/09/2020 Influenza Vaccine (#1) 2023 , 02/07/2020, 01/11/2019, Additional history exists Zoster Vaccine Completed 03/22/2021, 01/14/2021 Medical Devices Implanted Type Area Licensed Guide Device Identifier Shelf Expiration Date Model / [...] 2.10(A) 0.90 - 1.10 EXTERNAL LAB Blood Historical Provider MD LAB BLOOD ORDERABLES Clarice l Result EXTERNAL LAB * (ABNORMAL) Protime-INR (05/13/2024) INR 2.50(A) 0.90 - 1.10 EXTERNAL LAB Blood Historical Provider MD LAB BLOOD ORDERABLES Clarice l Result EXTERNAL LAB * (ABNORMAL) Protime-INR (04/29/2024) INR 2.00(A) 0.90 - 1.10 EXTERNAL LAB Blood Result [facility] Provider MD LAB BLOOD ORDERABLES Clarice l Result EXTERNAL LAB * (ABNORMAL) Protime-INR (04/22/2024) INR 1.70(A) 0.90 - 1.10 EXTERNAL LAB Blood Result [facility] Provider MD LAB BLOOD ORDERABLES Clarice l Result Performing Organization Address City/[facility]/ZIP Co de Phone Number EXTERNAL LAB * (ABNORMAL) Protime-INR (04/08/2024) INR 2.20(A) 0.90 - 1.10 EXTERNAL LAB Blood Result [facility] Provider MD LAB BLOOD ORDERABLES Clarice l Result EXTERNAL LAB * (ABNORMAL) Protime-INR (03/25/2024) INR 1.80(A) 0.90 - 1.10 EXTERNAL LAB Blood Result [facility] Provider MD LAB BLOOD ORDERABLES Clarice l Result EXTERNAL LAB * (ABNORMAL) Protime-INR (03/11/2024) INR 2.20(A) 0.90 - 1.10 EXTERNAL LAB Blood Result [facility] Provider MD LAB BLOOD ORDERABLES Clarice l Result EXTERNAL LAB from Last 3 Months Insurance ANTHEM MEDICARE HMO PPO ANTHEM MEDICARE HMO PPO ANTHEM MEDICARE HMO PPO Member Subscriber Plan / Payer (Ef fective 2019-Present) Name:[employer] Relation to Subscriber:Self Name:TonoDestini delgadillo Payer ID:[id number] (NAIC) Group ID:[id number] Type:MEDICARE RISK OTHER Address: [address] [place] [id number] Care Teams Managed Security Sales Consultant Relationship Specialty Start Date End Date Boris Baum MD [address] [place] [address] PCP - General Family Medicine 09/28/20
[2024-06-05 10:06] LABS: Alanine Aminotransferase 15 U/L (6-35); Albumin Level 4.2 g/dL (3.5-5.1); Alkaline Phosphatase 60 U/L (38-126); Anion Gap 8 mmol/L (4-12); Aspartate Amino Transferase 23 U/L (14-36); Bilirubin,Total 0.9 mg/dL (0.2-1.3); Blood Urea Nitrogen 16 mg/dL (7-17); Calcium 9.6 mg/dL (8.4-10.2); Carbon Dioxide 28 mmol/L (22-30); Chloride 97 mmol/L (98-107); Estimated Glomerular Filt Rate > 60; Glucose 92 mg/dL (65-110); Potassium 3.9 mmol/L (3.4-5.0); Sodium 133 mmol/L (137-145)
[2024-06-05 10:34] LABS: Thyroid Stimulating Hormone 0.579 uIU/mL (0.465-4.680)
== END 2024-06-05 09:05 | disposition home or self-care (01) ==
PROVIDERS: PCP Family Medicine; Visit Provider Family Medicine
DX: M47.812 Spondylosis without myelopathy or radiculopathy, cervical region (principal); I10 Essential (primary) hypertension; E03.9 Hypothyroidism, unspecified
CPT/HCPCS: 36415; 72040; 80053; 84443

== ENCOUNTER 2024-11-22 12:31 | Outpatient (CLI) | payer MEDICARE, SELFPAY ==
--- NOTE | ~2024-11-22 | MR_ITS ---
MRI of the lumbar spine Clinical History: Back pain Technique: Axial T2-weighted images, and sagittal T1-weighted, T2-weighted, and T2 fat-sat images wer e acquired. Findings: No acute fracture seen. There is 2 mm retrolisthesis of L1 over L2. No suspicious bone olga ow signal abnormality seen. At L1-L2, there is moderate degenerative disc narrowing. There is minimal disc bulge with mild to mod erate facet arthropathy. No central canal stenosis or neural foraminal narrowing. At L2-L3, there is mild diffuse disc bulge with moderate to advanced facet arthropathy. No central ca nal stenosis. There is minimal right neural foraminal narrowing. Left neural foramen preserved. At L3-L4, there is minimal disc bulge with moderate facet arthropathy. No central canal stenosis or d efinite neural foraminal narrowing. At L4-L5, there is minimal disc bulge with moderate to advanced facet arthropathy. No central canal s tenosis. There is moderate left neural foraminal narrowing. Right neural foramen preserved. At L5-S1, there is no disc bulge or herniation. There is moderate to severe facet arthropathy. No isis tral canal stenosis. There is minimal left neural foraminal narrowing. Right neural foramen preserved . Paravertebral soft tissues are unremarkable. Impression: [id number] degenerative spondylitic changes, as above. Reviewed, dictated and finalized at [facility]. Impression: [id number] degenerative spondylitic changes, as above.
--- OUTSIDE RECORDS SUMMARY | 2024-11-22 12:38 | XMS_ITS | Clinical Summary ---
Author Organization [facility] Address [address] [facility] [place] [address] Phone Care Team Providers Care Distribution Driver Name Role Phone Boris Baum MD Primary Care Provider Allergies No known active allergies Medications calcium carbonate-krysta min D3 500 mg(1,250mg) -400 unit tablet Take 1 tablet by mouth . 7 Active levothyroxine (SYNTHROID, LEVOTHROID) 50 mcg tablet Take 1 tablet (50 mcg total) by mouth 7 Active indapamide (LOZOL) 2.5 mg tablet Take 1 tablet (2.5 mg total) by mouth Active calcitonin (MIACALCIN) 200 unit/actuation nasal spray Administer 1 spray into affected nostril(s) 7 Active HYDROcodone-ac etaminophen (NORCO) 5-325 mg per tabletIndicati ons:Pain Take 1 tablet by mouth every 6 (six) hours as needed for pain 20 tablet 2 Active losartan (Cozaar) 25 mg tablet Take 1 tablet (25 mg total) by mouth daily Active warfarin (COUMADIN) 5 mg tabletIndicati ons:Prevention of Recurrent Venous Thrombosis in Malignancy Take 2.5 mg every Shelbie; 5 mg all other days 90 tablet 5 Active warfarin (COUMADIN) 5 mg tabletIndicati ons:Prevention of Recurrent Venous Thrombosis in Malignancy TAKE 5 MG PO DAILY 90 tablet 5 10/29/19 25 Discontinu ed(Reorder ) Active Problems Problem Noted Date Diagnosed Date [...] Continue compression therapy, warfarin regimen per PCP 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 2016 Osteopenia 07/19/2011 Hypothyroidism 07/19/2011 Encounters Date Type Department Care Team Description 11/13/2024 Anticoagulation Visit [facility] [address] [facility] [address] [place] [phone] Margareth Bear RN Chronic deep vein thrombosis (DVT) of proximal vein of left lower extremity (HCC) (Primary Dx); 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 10/28/2024 Orders Only [facility] Information Management [address] [place] [address] Scanning, Provider 10/28/2024 Anticoagulation Visit [facility] [address] [facility] [address] [place] [phone] Quita Epperson RN Chronic deep vein thrombosis (DVT) of proximal vein of left lower extremity (HCC) (Primary Dx); 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 10/14/2024 Anticoagulation Visit [facility] [address] [place] [address] [address] [place] [phone] Margareth Bear RN Chronic deep vein thrombosis (DVT) of proximal vein of left lower extremity (HCC) (Primary Dx); senior living (current) use of 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 09/30/2024 Orders Only [facility] Health Information Management [address] [place] [address] Scanning, Provider 09/30/2024 Anticoagulation Visit [facility] [address] [place] [phone] Quita Epperson RN Chronic deep vein thrombosis (DVT) of proximal vein of left lower extremity (HCC) (Primary Dx); senior living (current) use of 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 09/16/2024 Orders Only [facility] Health Information Management [address] [place] [address] Scanning, Provider 09/16/2024 Anticoagulation Visit [facility] [address] [place] [phone] Quita Epperson RN Chronic deep vein thrombosis (DVT) of proximal vein of left lower extremity (HCC) (Primary Dx); 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 09/03/2024 Orders Only [facility] Health Information Management [address] [place] [address] Scanning, Provider 09/03/2024 Anticoagulation Visit [facility] [address] [place] [phone] Bg Leon RN Chronic deep vein thrombosis (DVT) of proximal vein of left lower extremity (HCC) (Primary Dx); 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 from Last 3 [...] on file Legal Sex Female 7:06 AM CHUCK SPLITTER Gender Identity Not on file Sexual Orientation Not on file Obstetrics History Last Filed Vital Signs Vital Sign Reading Time Taken Comments Blood Pressure 130/72 05/27/2024 8:49 AM CHUCK SPLITTER Pulse 65 05/27/2024 8:49 AM CHUCK SPLITTER Temperature 36.4 C (97.5 F) 11/22/2021 11:05 AM CDT Respiratory Rate 20 11/22/2021 11:50 AM CDT Oxygen Saturation 97% 05/27/2024 8:49 AM CHUCK SPLITTER Inhaled Oxygen Concentration - - Weight 74.4 kg (164 lb) 05/27/2024 8:49 AM CHUCK SPLITTER Height 162.6 cm (5' 4) 05/27/2024 8:49 AM CHUCK SPLITTER Body Mass Index 28.15 05/27/2024 8:49 AM CHUCK SPLITTER Plan of Treatment Health Maintenance Due Date Last Done Comments Depression Screening 1945 DTaP/Tdap/Td Vaccine (1 - Tdap) 06/22/1954 Hepatitis B Screening 06/22/1961 Pneumococcal vaccine 65+ (1 of 1 - PCV) 06/22/1993 06/13/2014 Well Visit 65+ 06/22/2008 Osteoporosis Screening-Bone Density Scan 12/11/2021 12/12/2019 Fall Risk Assessment 11/22/2022 11/22/2021 Covid-19 Vaccine (3 - 2023-2 5 season) 2023 06/06/2020, 05/09/2020 Influenza Vaccine (#1) 2024 , 02/07/2020, 01/11/2019, Additional history exists Zoster Vaccine Completed 03/22/2021, 01/14/2021 Medical Devices Implanted Type Area Radio Repairer Device Identifier Shelf Expiration Date Model / Serial / Lot Other - See Comments Other - see comments Right: Breast Description:Right breast imp lant Procedures Procedure Name Priority Date/Time Associated Diagnosis Comments PROTIME-INR Routine 11/15/2024 9:28 PM CDT SCAN - LABS 10/28/2024 PROTIME-INR Routine 10/28/2024 PROTIME-INR Routine 10/14/2024 SCAN - LABS 09/30/2024 PROTIME-INR Routine 09/30/2024 SCAN - LABS 09/16/2024 PROTIME-INR Routine 09/16/2024 SCAN - LABS 09/03/2024 PROTIME-INR Routine 09/03/2024 from Last 3 Months Results * (ABNORMAL) Protime-INR (11/15/2024 9:28 PM CDT) INR 2.30(A) 0.90 - 1.10 EXTERNAL LAB Blood Historical Provider LAB BLOOD ORDERABLES Edit ed Result - Final EXTERNAL LAB * SCAN - LABS (10/28/2024) us Provider Scanning Final Result * (ABNORMAL) Protime-INR (10/28/2024) INR 2.30(A) 0.90 - 1.10 EXTERNAL LAB Blood Historical Provider MD LAB BLOOD ORDERABLES Clarice l Result Performing Organization Address [facility] de Phone Number EXTERNAL LAB * (ABNORMAL) Protime-INR (10/14/2024) INR 2.60(A) 0.90 - 1.10 EXTERNAL LAB Blood Result [facility] Provider MD LAB BLOOD ORDERABLES Edit ed Result - Final Performing Organization Address [facility] de Phone Number EXTERNAL LAB * SCAN - LABS (09/30/2024) Result [facility] Provider Scanning Final Result * (ABNORMAL) Protime-INR (09/30/2024) INR 2.40(A) 0.90 - 1.10 EXTERNAL LAB Blood Result [facility] Provider MD LAB BLOOD ORDERABLES Clarice l Result Performing Organization Address [facility] de Phone Number EXTERNAL LAB * SCAN - LABS (09/16/2024) Result [facility] Provider Scanning Final Result * (ABNORMAL) Protime-INR (09/16/2024) INR 2.10(A) 0.90 - 1.10 EXTERNAL LAB Blood Result [facility] Provider MD LAB BLOOD ORDERABLES Clarice l Result Performing Organization Address [facility] de Phone Number EXTERNAL LAB * SCAN - LABS (09/03/2024) Result [facility] Provider Scanning Final Result * (ABNORMAL) Protime-INR (09/03/2024) INR 2.10(A) 0.90 - 1.10 EXTERNAL LAB Blood 09/03/2024 Result [facility] Provider MD LAB BLOOD ORDERABLES Clarice sheikh Result EXTERNAL LAB from Last 3 Months Insurance ANTHEM MEDICARE HMO PPO [facility] MEDICARE O PPO ANTHEM MEDICARE HMO PPO Care Teams Distribution Driver Relationship Specialty Start Date End Date Boris Baum MD [address] [facility] [address] [place] [address] PCP - General Family Medicine 09/28/20
--- OUTSIDE RECORDS SUMMARY | 2024-11-22 12:38 | XMS_ITS | Clinical Summary ---
Author Organization [facility] Address [address] [place] [address] Care Team Providers Care Cpa Tax Name Role Phone Boris [place] MD Primary Care Provider [phone] Boris Baum MD Unavailable [phone] Source Comments [facility],non-owned Affiliates and Associated Physician Practices is amultiple site organization consisting of ambulatory clinics and hospital sitesin [place], [place], [place] and [place]. This disclosure is being madepursuant to the Care Everywhere program and may not contain all information available regarding this patient. Last updated 17.[facility] Allergies Active Allergy Reactions Criticality Noted Date Comments No Known Environmental Allergies Other Low 08/06/2012 None known. No Known Food Allergy Other Low 08/06/2012 None known. Verapamil Shortness of Breath High 07/23/2020 weakness Medications * Be aware that medications may not be up to date on this document. Alwaysverify current medications with the patient. CALCIUM-VITAMIN D PO Take 1 tablet by mouth Active indapamide (LOZOL) 1.25 MG tablet Take 1 tablet by mouth Active Calcitonin, [place], (MIACALCIN NA) [place] 1 spray into the nose Active warfarin (COUMADIN) 5 MG tablet Take 5 mg by mouth once daily Active Cholecalciferol 1.25 MG (40635 UT) Take 50,000 Units by mouth once daily Active SYNTHROID 50 MCG tabletIndicatio ns:Nontoxic goiter,Acquired hypothyroidism, Nontoxic single thyroid nodule,Multinod ular goiter (nontoxic),Thyr oid nodule Take 1 (one) tablet by mouth daily before breakfast BRAND NAME ONLY 90 tablet 4 Active Active Problems Problem Noted Date Diagnosed [...] proximal vein of left lower extremity 12/27/2016 USP (current) use of 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 2016 Carotid stenosis, asymptomatic, bilateral 2016 Overview (03/03/2020): 1-49% stenosis seen on Carotid US Nontoxic single thyroid nodule 07/26/2016 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 [...] = 0.6 oz pur e alcohol) Comments No Sex and Gender Information Value Date Recorded Sex Assigned at Not on file Legal Sex Female 5:40 PM STATEMENT CLERKS SUPERVISOR Gender Identity Not on file Sexual Orientation Not on file Last Filed Vital Signs Vital Sign Reading Time Taken Comments Blood Pressure 144/84 03/15/2021 2:04 PM STATEMENT CLERKS SUPERVISOR Pulse 78 03/15/2021 2:04 PM STATEMENT CLERKS SUPERVISOR Temperature 36.4 C (97.5 F) 03/15/2021 2:04 PM STATEMENT CLERKS SUPERVISOR Respiratory Rate 16 08/07/2018 8:06 AM CDT Oxygen Saturation 95% 03/15/2021 2:04 PM STATEMENT CLERKS SUPERVISOR Inhaled Oxygen Concentration - - Weight 79.4 kg (175 lb) 03/15/2021 2:04 PM STATEMENT CLERKS SUPERVISOR Height 157.5 cm (5' 2) 03/15/2021 2:04 PM STATEMENT CLERKS SUPERVISOR Body Mass Index 32.01 03/15/2021 2:04 PM STATEMENT CLERKS SUPERVISOR Plan of Treatment Health Maintenance Due Date Last Done Comments BONE DENSITY TESTING 1945 DTAP/TDAP/TD VACCINES (1 - Tdap) 06/22/1962 PNEUMOCOCCAL VACCINE 50+ (2 of 2 - PCV) 02/01/2018 02/01/2017, 06/13/2014 Respiratory Syncytial Virus (RSV) Vaccine Pt: or over 60 yrs (1 - 1-dose 75+ series) 06/22/2018 ZOSTER VACCINE (2 of 2) 03/11/2021 01/14/2021 COVID-19 VACCINE (1 - season) 2023 DEPRESSION SCREENING 04/10/2024 MEDICARE AWV CALENDAR YEAR 2024 INFLUENZA VACCINE (#1) 2024 , 02/07/2020, 01/11/2019, Additional history exists HEPATITIS B VACCINE Aged Out No longe r eligible based on patient's age to complete this topic HIB VACCINE Aged Out No longer eligi ble based on patient's age to complete this topic HPV VACCINE Aged Out No longer eligi ble based on patient's age to complete this topic MENINGOCOCCAL (Group B) VACCINE SHARED DECISION-MAKING Aged Out No longer eligible based on patient's age to complete this topic MENINGOCOCCAL GROUPS A/C/Y/W VACCINE Aged Out No longer eligible based on patient's age to complete this topic Insurance ANTHEM ANTHEM ANTHEM ANTHEM ANTHEM ANTHEM ANTHEM ANTHEM ANTHEM ANTHEM ANTHEM ANTHEM Care Teams Cpa Tax Relationship Specialty Start Date End Date Boris Baum MD [address] [place] [address] PCP - General 08/24/20 Boris Baum MD [address] [place] [address] 08/24/20
--- OUTSIDE RECORDS SUMMARY | 2024-11-22 12:38 | XMS_ITS | Encounter Summary ---
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 Gender Identity Not on file Sexual Orientation Not on file documented as of this encounter Plan of Treatment Not on file documented as of this encounter Procedures Procedure Name Priority Date/Time Associated Diagnosis Comments SCAN - LABS 06/24/2024 documented in this encounter Results * SCAN - LABS (06/24/2024) us Provider Scanning Final Result documented in this encounter Visit Diagnoses Not on filedocumented in this encounter Care Teams Vending Route Servicer Relationship Specialty Start Date End Date Boris Baum MD [address] [facility] [address] [place] [address] PCP - General Family Medicine 09/28/20 documented as of this encounter
--- OUTSIDE RECORDS SUMMARY | 2024-11-22 12:38 | XMS_ITS | Encounter Summary ---
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 Gender Identity Not on file Sexual Orientation Not on file documented as of this encounter Plan of Treatment Not on file documented as of this encounter Procedures Procedure Name Priority Date/Time Associated Diagnosis Comments SCAN - LABS 06/10/2024 documented in this encounter Results * SCAN - LABS (06/10/2024) us Provider Scanning Final Result documented in this encounter Visit Diagnoses Not on filedocumented in this encounter Care Teams Clinical Dental Technician Relationship Specialty Start Date End Date Boris Baum MD [address] [facility] [address] [place] [address] PCP - General Family Medicine 09/28/20 documented as of this encounter
--- OUTSIDE RECORDS SUMMARY | 2024-11-22 12:38 | XMS_ITS | Encounter Summary ---
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 Gender Identity Not on file Sexual Orientation Not on file documented as of this encounter Plan of Treatment Not on file documented as of this encounter Procedures Procedure Name Priority Date/Time Associated Diagnosis Comments SCAN - LABS 03/11/2024 documented in this encounter Results * SCAN - LABS (03/11/2024) us Provider Scanning Final Result documented in this encounter Visit Diagnoses Not on filedocumented in this encounter Care Teams Newspaper Press Operator Apprentice Relationship Specialty Start Date End Date Boris Baum MD [address] [facility] [address] [place] [address] PCP - General Family Medicine 09/28/20 documented as of this encounter
--- OUTSIDE RECORDS SUMMARY | 2024-11-22 12:38 | XMS_ITS | Encounter Summary ---
Author Organization [facility] Address [address] [place] [address] Phone Care Team Providers Care Market Development Analyst Name Role Phone Boris Baum MD [...] on file Legal Sex Female 7:06 AM EXHIBIT PREPARATOR Gender Identity Not on file Sexual Orientation [...] on filedocumented in this encounter Care Teams Market Development Analyst Relationship Specialty Start Date End Date Boris Baum MD [address] [facility] [address] [place] [address] PCP - General Family Medicine 06/13/18 06/11/19 Boris Baum MD [address] [facility] [address] [place] [address] PCP - General Family Medicine 09/28/20 documented as of this encounter
--- OUTSIDE RECORDS SUMMARY | 2024-11-22 12:38 | XMS_ITS | Encounter Summary ---
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
--- OUTSIDE RECORDS SUMMARY | 2024-11-22 12:38 | XMS_ITS | Encounter Summary ---
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 Gender Identity Not on file Sexual Orientation Not on file documented as of this encounter Plan of Treatment Not on file documented as of this encounter Procedures Procedure Name Priority Date/Time Associated Diagnosis Comments SCAN - LABS 09/06/2021 documented in this encounter Results * SCAN - LABS (09/06/2021) us Provider Scanning Edited Result - Final documented in this encounter Visit Diagnoses Not on filedocumented in this encounter Care Teams Armament Aircraft Mechanic Relationship Specialty Start Date End Date Boris Baum MD [address] [address] PCP - General Family Medicine 09/28/20 documented as of this encounter
--- OUTSIDE RECORDS SUMMARY | 2024-11-22 12:38 | XMS_ITS | Encounter Summary ---
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 Gender Identity Not on file Sexual Orientation Not on file documented as of this encounter Plan of Treatment Not on file documented as of this encounter Procedures Procedure Name Priority Date/Time Associated Diagnosis Comments SCAN - LABS 09/16/2024 documented in this encounter Results * SCAN - LABS (09/16/2024) us Provider Scanning Final Result documented in this encounter Visit Diagnoses Not on filedocumented in this encounter Care Teams Director Online Marketing Relationship Specialty Start Date End Date Boris Baum MD [address] [facility] 120 [place] [address] PCP - General Family Medicine 09/28/20 documented as of this encounter
--- OUTSIDE RECORDS SUMMARY | 2024-11-22 12:38 | XMS_ITS | Encounter Summary ---
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 Gender Identity Not on file Sexual Orientation Not on file documented as of this encounter Plan of Treatment Not on file documented as of this encounter Procedures Procedure Name Priority Date/Time Associated Diagnosis Comments SCAN - LABS 08/05/2024 documented in this encounter Results * SCAN - LABS (08/05/2024) us Provider Scanning Final Result documented in this encounter Visit Diagnoses Not on filedocumented in this encounter Care Teams Offal Icer Poultry Relationship Specialty Start Date End Date Boris Baum MD [address] [facility] [address] [place] [address] PCP - General Family Medicine 09/28/20 documented as of this encounter
--- OUTSIDE RECORDS SUMMARY | 2024-11-22 12:38 | XMS_ITS | Encounter Summary ---
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 AM CHILD PROTECTIVE SERVICES SPECIALIST Gender Identity Not on file Sexual Orientation Not on file documented as of this encounter Plan of Treatment Not on file documented as of this encounter Procedures Procedure Name Priority Date/Time Associated Diagnosis Comments SCAN - LABS 09/30/2024 documented in this encounter Results * SCAN - LABS (09/30/2024) us Provider Scanning Final Result documented in this encounter Visit Diagnoses Not on filedocumented in this encounter Care Teams Cotton Weigher Relationship Specialty Start Date End Date Boris Baum MD [address] [facility] 120 [place] [address] PCP - General Family Medicine 09/28/20 documented as of this encounter
--- OUTSIDE RECORDS SUMMARY | 2024-11-22 12:38 | XMS_ITS | Encounter Summary ---
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 Gender Identity Not on file Sexual Orientation Not on file documented as of this encounter Plan of Treatment Not on file documented as of this encounter Procedures Procedure Name Priority Date/Time Associated Diagnosis Comments SCAN - LABS 04/22/2024 documented in this encounter Results * SCAN - LABS (04/22/2024) us Provider Scanning Final Result documented in this encounter Visit Diagnoses Not on filedocumented in this encounter Care Teams Product Marketing Intern Relationship Specialty Start Date End Date Boris Baum MD [address] [facility] 120 [place] [address] PCP - General Family Medicine 09/28/20 documented as of this encounter
--- OUTSIDE RECORDS SUMMARY | 2024-11-22 12:38 | XMS_ITS | Encounter Summary ---
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 OWNER OPERATOR Gender Identity Not on file Sexual Orientation Not on file documented as of this encounter Plan of Treatment Not on file documented as of this encounter Procedures Procedure Name Priority Date/Time Associated Diagnosis Comments SCAN - LABS 04/08/2024 documented in this encounter Results * SCAN - LABS (04/08/2024) us Provider Scanning Final Result documented in this encounter Visit Diagnoses Not on filedocumented in this encounter Care Teams Scanning Tech Relationship Specialty Start Date End Date Boris Baum MD [address] [facility] 120 [place] [address] PCP - General Family Medicine 09/28/20 documented as of this encounter
--- OUTSIDE RECORDS SUMMARY | 2024-11-22 12:38 | XMS_ITS | Encounter Summary ---
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 Gender Identity Not on file Sexual Orientation Not on file documented as of this encounter Plan of Treatment Not on file documented as of this encounter Procedures Procedure Name Priority Date/Time Associated Diagnosis Comments SCAN - LABS 08/19/2024 documented in this encounter Results * SCAN - LABS (08/19/2024) us Provider Scanning Final Result documented in this encounter Visit Diagnoses Not on filedocumented in this encounter Care Teams Wire Border Assembler Relationship Specialty Start Date End Date Boris Baum MD [address] [facility] 120 [place] [address] PCP - General Family Medicine 09/28/20 documented as of this encounter
--- OUTSIDE RECORDS SUMMARY | 2024-11-22 12:38 | XMS_ITS | Encounter Summary ---
Author Organization 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 Gender Identity Not on file Sexual Orientation Not on file documented as of this encounter Plan of Treatment Not on file documented as of this encounter Procedures Procedure Name Priority Date/Time Associated Diagnosis Comments SCAN - LABS 05/27/2024 documented in this encounter Results * SCAN - LABS (05/27/2024) us Provider Scanning Final Result documented in this encounter Visit Diagnoses Not on filedocumented in this encounter Care Teams Station Helper Relationship Specialty Start Date End Date Boris Baum MD [address] [facility] 120 [place] [address] PCP - General Family Medicine 09/28/20 documented as of this encounter
--- OUTSIDE RECORDS SUMMARY | 2024-11-22 12:38 | XMS_ITS | Encounter Summary ---
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 Gender Identity Not on file Sexual Orientation Not on file documented as of this encounter Plan of Treatment Not on file documented as of this encounter Procedures Procedure Name Priority Date/Time Associated Diagnosis Comments SCAN - LABS 07/08/2024 documented in this encounter Results * SCAN - LABS (07/08/2024) us Provider Scanning Final Result documented in this encounter Visit Diagnoses Not on filedocumented in this encounter Care Teams Laboratory Equipment Cleaner Relationship Specialty Start Date End Date Boris Baum MD [address] [facility] 120 [place] [address] PCP - General Family Medicine 09/28/20 documented as of this encounter
--- OUTSIDE RECORDS SUMMARY | 2024-11-22 12:38 | XMS_ITS | Encounter Summary ---
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 Gender Identity Not on file Sexual Orientation Not on file documented as of this encounter Plan of Treatment Not on file documented as of this encounter Procedures Procedure Name Priority Date/Time Associated Diagnosis Comments SCAN - LABS 04/29/2024 documented in this encounter Results * SCAN - LABS (04/29/2024) us Provider Scanning Final Result documented in this encounter Visit Diagnoses Not on filedocumented in this encounter Care Teams Beam Department Supervisor Relationship Specialty Start Date End Date Boris Baum MD [address] [facility] 120 [place] [address] PCP - General Family Medicine 09/28/20 documented as of this encounter
--- OUTSIDE RECORDS SUMMARY | 2024-11-22 12:38 | XMS_ITS | Encounter Summary ---
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 Gender Identity Not on file Sexual Orientation Not on file documented as of this encounter Plan of Treatment Not on file documented as of this encounter Procedures Procedure Name Priority Date/Time Associated Diagnosis Comments SCAN - LABS 02/19/2024 documented in this encounter Results * SCAN - LABS (02/19/2024) us Provider Scanning Final Result documented in this encounter Visit Diagnoses Not on filedocumented in this encounter Care Teams Project Consultant Relationship Specialty Start Date End Date Boris Baum MD [address] [facility] 120 [place] [address] PCP - General Family Medicine 09/28/20 documented as of this encounter
--- OUTSIDE RECORDS SUMMARY | 2024-11-22 12:38 | XMS_ITS | Encounter Summary ---
Author Organization [facility] Healthcare Address [address] [place] [address] Care Team Providers Care Press Set Up Name Role Phone Boris Baum MD Primary Care Provider Encounter Details Date Type Department Care Team (Late st Contact Info) Description 09/03/[address] 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 Gender Identity Not on file Sexual Orientation Not on file documented as of this encounter Plan of Treatment Not on file documented as of this encounter Procedures Procedure Name Priority Date/Time Associated Diagnosis Comments SCAN - LABS 09/03/2024 documented in this encounter Results * SCAN - LABS (09/03/2024) us Provider Scanning Final Result documented in this encounter Visit Diagnoses Not on filedocumented in this encounter Care Teams Press Set Up Relationship Specialty Start Date End Date Boris Baum MD [address] [facility] 120 [place] [address] PCP - General Family Medicine 09/28/20 documented as of this encounter
--- OUTSIDE RECORDS SUMMARY | 2024-11-22 12:38 | XMS_ITS | Encounter Summary ---
Author Organization [facility] Healthcare Address [address] [place] [address] Care Team Providers Care Catalogue Compiler Name Role Phone Boris aBum MD Primary Care Provider Encounter Details Date Type Department Care Team (Late st Contact Info) Description 07/22/2024 Orders Only 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 Gender Identity Not on file Sexual Orientation Not on file documented as of this encounter Plan of Treatment Not on file documented as of this encounter Procedures Procedure Name Priority Date/Time Associated Diagnosis Comments SCAN - LABS 07/22/2024 documented in this encounter Results * SCAN - LABS (07/22/2024) us Provider Scanning Final Result documented in this encounter Visit Diagnoses Not on filedocumented in this encounter Care Teams Catalogue Compiler Relationship Specialty Start Date End Date Boris Baum MD [address] [facility] 120 [place] [address] PCP - General Family Medicine 09/28/20 documented as of this encounter
--- OUTSIDE RECORDS SUMMARY | 2024-11-22 12:39 | XMS_ITS | Encounter Summary ---
Author Organization [facility] Healthcare Address [address] [place] [address] Care Team Providers Care Project Architect Name Role Phone Boris Baum MD Primary Care Provider Encounter Details Date Type Department Care Team (Late st Contact Info) Description 01/22/[address] 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 Gender Identity Not on file Sexual Orientation Not on file documented as of this encounter Plan of Treatment Not on file documented as of this encounter Procedures Procedure Name Priority Date/Time Associated Diagnosis Comments SCAN - LABS 01/22/2024 documented in this encounter Results * SCAN - LABS (01/22/2024) us Provider Scanning Final Result documented in this encounter Visit Diagnoses Not on filedocumented in this encounter Care Teams Project Architect Relationship Specialty Start Date End Date Boris Baum MD [address] [facility] 120 [place] [address] PCP - General Family Medicine 09/28/20 documented as of this encounter
--- OUTSIDE RECORDS SUMMARY | 2024-11-22 12:39 | XMS_ITS | Encounter Summary ---
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 Gender Identity Not on file Sexual Orientation Not on file documented as of this encounter Plan of Treatment Not on file documented as of this encounter Procedures Procedure Name Priority Date/Time Associated Diagnosis Comments SCAN - LABS 02/05/2024 documented in this encounter Results * SCAN - LABS (02/05/2024) us Provider Scanning Final Result documented in this encounter Visit Diagnoses Not on filedocumented in this encounter Care Teams Oven Laborer Relationship Specialty Start Date End Date Boris Baum MD [address] [facility] 120 [place] [address] PCP - General Family Medicine 09/28/20 documented as of this encounter
--- OUTSIDE RECORDS SUMMARY | 2024-11-22 12:39 | XMS_ITS | Encounter Summary ---
Author Organization [facility] Health Address [address] [place] [address] Care Team Providers Care Labor And Delivery Nurse Name Role Phone Boris Baum MD Primary Care Provider [phone] Boris Baum MD Unavailable [phone] Encounter Details Date Type Department Care Team (Late st Contact Info) Description 11/23/2021 Telephone [facility] [address] [place] [address] Darrian Hurst MD [address] [place] [address] [place] [address] Social History Tobacco Use Types Packs/Day Years Used Date Smoking Tobacco: Former Cigarettes Q uit: 04/10/1996 Smokeless Tobacco: Never Alcohol Use Standard Drinks/Week Comments Not Currently 0 (1 standard drink = 0.6 oz pur e alcohol) Comments No Sex and Gender Information Value Date Recorded Sex Assigned at Not on file Legal Sex Female 5:40 PM RN ENTEROSTOMAL Gender Identity Not on file Sexual Orientation Not on file documented as of this encounter Miscellaneous Notes * Telephone Encounter - Sabra Glaser - 11/23/2021 2:19 PM CDT Current Provider name:SHANTE Reason for call: Pt is requesting a referral to see an endocrine doctor near her home. She can't continue to make the drive from [place]. The doctor's name is Francisco Javier Wilburn MD and he is [place] at [address] [place] [address]. His phone number is [phone]. She did not have the fax number. Patient Call Back number: [phone] documented in this encounter Plan of Treatment Not on file documented as of this encounter Visit Diagnoses Not on filedocumented in this encounter Care Teams Labor And Delivery Nurse Relationship Specialty Start Date End Date Boris Baum MD [address] [place] [address] PCP - General 08/24/20 Boris Baum MD [address] [place] [address] 08/24/20 documented as of this encounter
--- OUTSIDE RECORDS SUMMARY | 2024-11-22 12:39 | XMS_ITS | Encounter Summary ---
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 Gender Identity Not on file Sexual Orientation Not on file documented as of this encounter Plan of Treatment Not on file documented as of this encounter Procedures Procedure Name Priority Date/Time Associated Diagnosis Comments SCAN - LABS 07/06/2023 documented in this encounter Results * SCAN - LABS (07/06/2023) us Provider Scanning Final Result documented in this encounter Visit Diagnoses Not on filedocumented in this encounter Care Teams Green Prize Packer Relationship Specialty Start Date End Date Boris Baum MD [address] [facility] 120 [place] [address] PCP - General Family Medicine 09/28/20 documented as of this encounter
--- OUTSIDE RECORDS SUMMARY | 2024-11-22 12:39 | XMS_ITS | Encounter Summary ---
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 Gender Identity Not on file Sexual Orientation Not on file documented as of this encounter Plan of Treatment Not on file documented as of this encounter Procedures Procedure Name Priority Date/Time Associated Diagnosis Comments SCAN - LABS 12/25/2023 documented in this encounter Results * SCAN - LABS (12/25/2023) us Provider Scanning Final Result documented in this encounter Visit Diagnoses Not on filedocumented in this encounter Care Teams Frame Nailer Relationship Specialty Start Date End Date Boris Baum MD [address] [facility] [address] [place] [address] PCP - General Family Medicine 09/28/20 documented as of this encounter
--- OUTSIDE RECORDS SUMMARY | 2024-11-22 12:39 | XMS_ITS | Encounter Summary ---
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 Gender Identity Not on file Sexual Orientation Not on file documented as of this encounter Plan of Treatment Not on file documented as of this encounter Procedures Procedure Name Priority Date/Time Associated Diagnosis Comments SCAN - LABS 01/08/2024 documented in this encounter Results * SCAN - LABS (01/08/2024) us Provider Scanning Final Result documented in this encounter Visit Diagnoses Not on filedocumented in this encounter Care Teams Pantograph Ii Engraver Relationship Specialty Start Date End Date Boris Baum MD [address] [facility] [address] [place] [address] PCP - General Family Medicine 09/28/20 documented as of this encounter
--- OUTSIDE RECORDS SUMMARY | 2024-11-22 12:39 | XMS_ITS | Encounter Summary ---
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 Gender Identity Not on file Sexual Orientation Not on file documented as of this encounter Plan of Treatment Not on file documented as of this encounter Procedures Procedure Name Priority Date/Time Associated Diagnosis Comments SCAN - LABS 12/12/2023 documented in this encounter Results * SCAN - LABS (12/12/2023) us Provider Scanning Final Result documented in this encounter Visit Diagnoses Not on filedocumented in this encounter Care Teams Casework Supervisor Relationship Specialty Start Date End Date Boris Baum MD [address] [facility] 120 [place] [address] PCP - General Family Medicine 09/28/20 documented as of this encounter
== END 2024-11-22 12:32 | disposition home or self-care (01) ==
PROVIDERS: PCP Family Medicine
DX: M54.50 Low back pain, unspecified (principal)
CPT/HCPCS: 72148

== ENCOUNTER 2024-12-10 09:55 | Outpatient (CLI) | payer MEDICARE, SELFPAY ==
--- NOTE | ~2024-12-10 | XR_ITS ---
[id number] 12/10/2024 10:28 Indication: Cervicalgia Procedure: 4 view cervical spine Comparison: 06/05/2024 Findings: Lung apices are normal. Straightening of cervical lordosis. Mild chronic loss of vertebral body height at C5 and C6. There is disc narrowing at these levels as well. Odontoid process is normal. Lateral masses normally aligned. Lung apices are normal. No prevertebral soft tissue abnormality. Impression: 1: No acute abnormality of the cervical spine. 2: Moderate cervical spondylosis. Reviewed, dictated and finalized at location O. Impression: 1: No acute abnormality of the cervical spine. 2: Moderate cervical spondylosis.
--- OUTSIDE RECORDS SUMMARY | 2024-12-10 10:22 | XMS_ITS | Clinical Summary ---
Author Organization [facility] Address [address] [facility] [place] [address] Care Team Providers Care Oil Well Services Field Supervisor Name Role Phone Boris Baum MD Primary Care Provider [phone] Boris Baum MD Unavailable [phone] Source Comments [facility],non-owned Affiliates and Associated Physician Practices is amultiple site organization consisting of ambulatory clinics and hospital sitesin [place], [place], [place] and [place]. This disclosure is being madepursuant to the Care Everywhere program and may not contain all information available regarding this patient. 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 Gender Identity Not on file Sexual Orientation Not on file Last Filed Vital Signs Vital Sign Reading Time Taken Comments Blood Pressure 144/84 03/15/2021 2:04 PM THEATRE ARTS PROFESSOR Pulse 78 03/15/2021 2:04 PM THEATRE ARTS PROFESSOR Temperature 36.4 C (97.5 F) 03/15/2021 2:04 PM THEATRE ARTS PROFESSOR Respiratory Rate 16 08/07/2018 8:06 AM CDT Oxygen Saturation 95% 03/15/2021 2:04 PM THEATRE ARTS PROFESSOR Inhaled Oxygen Concentration - - Weight 79.4 kg (175 lb) 03/15/2021 2:04 PM THEATRE ARTS PROFESSOR Height 157.5 cm (5' 2) 03/15/2021 2:04 PM THEATRE ARTS PROFESSOR Body Mass Index 32.01 03/15/2021 2:04 PM THEATRE ARTS PROFESSOR Plan of Treatment Health Maintenance Due Date [...] ANTHEM ANTHEM ANTHEM ANTHEM ANTHEM Care Teams Oil Well Services Field Supervisor Relationship Specialty Start Date End Date Boris Baum MD [address] [place] [address] PCP - General 08/24/20 Boris Baum MD [address] [place] [address] 08/24/20
--- OUTSIDE RECORDS SUMMARY | 2024-12-10 10:22 | XMS_ITS | Encounter Summary ---
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
--- OUTSIDE RECORDS SUMMARY | 2024-12-10 10:22 | XMS_ITS | Encounter Summary ---
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
--- OUTSIDE RECORDS SUMMARY | 2024-12-10 10:22 | XMS_ITS | Encounter Summary ---
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
--- OUTSIDE RECORDS SUMMARY | 2024-12-10 10:23 | XMS_ITS | Encounter Summary ---
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
--- OUTSIDE RECORDS SUMMARY | 2024-12-10 10:23 | XMS_ITS | Encounter Summary ---
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
--- OUTSIDE RECORDS SUMMARY | 2024-12-10 10:23 | XMS_ITS | Encounter Summary ---
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
--- OUTSIDE RECORDS SUMMARY | 2024-12-10 10:23 | XMS_ITS | Encounter Summary ---
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
--- OUTSIDE RECORDS SUMMARY | 2024-12-10 10:23 | XMS_ITS | Encounter Summary ---
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
--- OUTSIDE RECORDS SUMMARY | 2024-12-10 10:23 | XMS_ITS | Encounter Summary ---
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 Gender Identity Not on file Sexual Orientation Not on file documented as of this encounter Plan of Treatment Not on file documented as of this encounter Procedures Procedure Name Priority Date/Time Associated Diagnosis Comments SCAN - LABS 05/31/2023 documented in this encounter Results * SCAN - LABS (05/31/2023) us Provider Scanning Final Result documented in this encounter Visit Diagnoses Not on filedocumented in this encounter Care Teams Tool Programmer Relationship Specialty Start Date End Date Boris Baum MD [address] [facility] 120 [place] [address] PCP - General Family Medicine 09/28/20 documented as of this encounter
--- OUTSIDE RECORDS SUMMARY | 2024-12-10 10:23 | XMS_ITS | Encounter Summary ---
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
--- OUTSIDE RECORDS SUMMARY | 2024-12-10 10:23 | XMS_ITS | Encounter Summary ---
Author Organization 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
--- OUTSIDE RECORDS SUMMARY | 2024-12-10 10:23 | XMS_ITS | Encounter Summary ---
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 Gender Identity Not on file Sexual Orientation Not on file documented as of this encounter Plan of Treatment Not on file documented as of this encounter Procedures Procedure Name Priority Date/Time Associated Diagnosis Comments SCAN - LABS 05/13/2024 documented in this encounter Results * SCAN - LABS (05/13/2024) us Provider Scanning Final Result documented in this encounter Visit Diagnoses Not on filedocumented in this encounter Care Teams Maintainer Operator Relationship Specialty Start Date End Date Boris Baum MD [address] [facility] [address] [place] [address] PCP - General Family Medicine 09/28/20 documented as of this encounter
--- OUTSIDE RECORDS SUMMARY | 2024-12-10 10:23 | XMS_ITS | Encounter Summary ---
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
--- OUTSIDE RECORDS SUMMARY | 2024-12-10 10:23 | XMS_ITS | Encounter Summary ---
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
--- OUTSIDE RECORDS SUMMARY | 2024-12-10 10:23 | XMS_ITS | Encounter Summary ---
Author Organization [facility] Healthcare Address [address] [place] [address] Care Team Providers Care Soda Dry House Operator Name Role Phone Boris Baum MD Primary Care Provider Encounter Details Date Type Department Care Team (Late st Contact Info) Description 07/22/[address] 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
--- OUTSIDE RECORDS SUMMARY | 2024-12-10 10:23 | XMS_ITS | Encounter Summary ---
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
--- OUTSIDE RECORDS SUMMARY | 2024-12-10 10:23 | XMS_ITS | Encounter Summary ---
Author Organization [facility] Health Address [address] [facility] [place] [address] Care Team Providers Care Certification Officer Name Role Phone Boris Baum MD Primary Care Provider [phone] Boris Baum MD Unavailable [phone] Encounter Details Date Type Department Care Team (Late st Contact Info) Description 11/23/2021 Telephone [facility] [address] [place] [address] Darrian Hurst MD [address] [place] [address] [place] [address] Social History Tobacco Use Types Packs/Day Years Used Date Smoking Tobacco: Former Cigarettes Q uit: 04/10/1996 Smokeless Tobacco: Never Alcohol Use Standard Drinks/Week Comments Not Currently 0 (1 standard drink = 0.6 oz pur e alcohol) Comments No Sex and Gender Information Value Date Recorded Sex Assigned at Not on file Legal Sex Female 5:40 PM COMMUNICATION CONSULTANT Gender Identity Not on file Sexual Orientation Not on file documented as of this encounter Miscellaneous Notes * Telephone Encounter - Sabra Glaser - 11/23/2021 2:19 PM CDT Current Provider name:SHANTE Reason for call: Pt is requesting a referral to see an endocrine doctor near her home. She can't continue to make the drive from [place]. The doctor's name is Francisco Javier [place] MD and he is located at [address] [place] [address]. His phone number is [phone]. She did not have the fax number. Patient Call Back number: [phone] documented in this encounter Plan of Treatment Not on file documented as of this encounter Visit Diagnoses Not on filedocumented in this encounter Care Teams Certification Officer Relationship Specialty Start Date End Date Boris Baum MD [address] [place] [address] PCP - General 08/24/20 Boris Baum MD [address] [place] [address] 08/24/20 documented as of this encounter
--- OUTSIDE RECORDS SUMMARY | 2024-12-10 10:23 | XMS_ITS | Encounter Summary ---
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 Gender Identity Not on file Sexual Orientation Not on file documented as of this encounter Plan of Treatment Not on file documented as of this encounter Procedures Procedure Name Priority Date/Time Associated Diagnosis Comments SCAN - LABS 11/27/2023 documented in this encounter Results * SCAN - LABS (11/27/2023) us Provider Scanning Final Result documented in this encounter Visit Diagnoses Not on filedocumented in this encounter Care Teams [id number] Armor Crewman Relationship Specialty Start Date End Date Boris Baum MD [address] [facility] [address] [place] [address] PCP - General Family Medicine 09/28/20 documented as of this encounter
--- OUTSIDE RECORDS SUMMARY | 2024-12-10 10:23 | XMS_ITS | Encounter Summary ---
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
--- OUTSIDE RECORDS SUMMARY | 2024-12-10 10:23 | XMS_ITS | Encounter Summary ---
Author Organization [facility] Healthcare Address [address] [place] [address] Care Team Providers Care Training Development Manager Name Role Phone Boris Baum MD Primary Care Provider Encounter Details Date Type Department Care Team (Late st Contact Info) Description 05/27/[address] 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
--- OUTSIDE RECORDS SUMMARY | 2024-12-10 10:23 | XMS_ITS | Encounter Summary ---
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 [address] [place] [address] PCP - General Family Medicine 09/28/20 documented as of this encounter
--- OUTSIDE RECORDS SUMMARY | 2024-12-10 10:23 | XMS_ITS | Encounter Summary ---
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
--- OUTSIDE RECORDS SUMMARY | 2024-12-10 10:23 | XMS_ITS | Encounter Summary ---
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 [address] [place] [address] PCP - General Family Medicine 09/28/20 documented as of this encounter
--- OUTSIDE RECORDS SUMMARY | 2024-12-10 10:23 | XMS_ITS | Encounter Summary ---
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
--- OUTSIDE RECORDS SUMMARY | 2024-12-10 10:23 | XMS_ITS | Encounter Summary ---
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
--- OUTSIDE RECORDS SUMMARY | 2024-12-10 10:23 | XMS_ITS | Encounter Summary ---
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
--- OUTSIDE RECORDS SUMMARY | 2024-12-10 10:23 | XMS_ITS | Clinical Summary ---
Author Organization 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 Osteopenia 07/19/2011 Hypothyroidism 07/19/2011 Encounters Date Type Department Care Team Description 12/02/2024 Anticoagulation Visit [facility] [address] [place] [address] [place] [phone] Margareth Bear RN Chronic deep vein thrombosis (DVT) of proximal vein of left lower extremity (HCC) (Primary Dx); halfway (current) use of 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 11/25/2024 10:15 AM CDT Office Visit [address] [phone] Fredy Rogers MD Essential hypertension (Primary Dx); Varicose veins of both lower extremities with pain; PVC's (premature ventricular contractions); Chronic deep vein thrombosis (DVT) of proximal vein of left lower extremity (HCC) 11/13/2024 Anticoagulation Visit [facility] [address] [place] [phone] Margareth Bear RN Chronic deep vein thrombosis (DVT) of proximal vein of left lower extremity (HCC) (Primary Dx); halfway (current) use of 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 10/28/2024 Orders Only [facility] [place] Information Management [address] [place] [address] Scanning, Provider 10/28/2024 Anticoagulation Visit [facility] [address] [place] [address] [address] [place] [address] Quita Epperson RN Chronic deep vein thrombosis (DVT) of proximal vein of left lower extremity (HCC) (Primary Dx); 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 10/14/2024 Anticoagulation Visit [facility] [address] [place] [address] [address] [place] [address] Margareth Bear RN Chronic deep vein thrombosis (DVT) of proximal vein of left lower extremity (HCC) (Primary Dx); 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 09/30/2024 Orders Only [facility] Health Information Management [address] [place] [address] Scanning, Provider 09/30/2024 Anticoagulation Visit [facility] [address] [place] [address] [address] [place] [phone] Quita Epperson RN Chronic deep vein thrombosis (DVT) of proximal vein of left lower extremity (HCC) (Primary Dx); 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 09/16/2024 Orders Only [facility] Health Information Management [address] [place] [address] Scanning, Provider 09/16/2024 Anticoagulation Visit [facility] [address] [place] [address] [address] [place] [phone] Quita Epperson RN Chronic deep vein thrombosis (DVT) of proximal vein of left lower extremity (HCC) (Primary Dx); 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 from Last 3 [...] file 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 Gender Identity Not on file Sexual Orientation Not on file Obstetrics History Last Filed Vital Signs Vital Sign Reading Time Taken Comments Blood Pressure 130/68 11/25/2024 10:03 AM CDT Pulse 66 11/25/2024 10:03 AM CDT Temperature 36.4 C (97.5 F) 11/22/2021 11:05 AM CDT Respiratory Rate 16 11/25/2024 10:03 AM CDT Oxygen Saturation 95% 11/25/2024 10:03 AM CDT Inhaled Oxygen Concentration - - Weight 74.8 kg (165 lb) 11/25/2024 10:03 AM CDT Height 162.6 cm (5' 4) 11/25/2024 10:03 AM CDT Body Mass Index 28.32 11/25/2024 10:03 AM CDT Plan of Treatment Health Maintenance Due Date [...] 03/22/2021, 01/14/2021 Medical Devices Implanted Type Area Ironer Hand Device Identifier Shelf Expiration Date Model / Serial / Lot Other - See Comments Other - see comments Right: Breast Description:Right breast imp lant Procedures Procedure Name Priority Date/Time Associated Diagnosis Comments PROTIME-INR Routine 12/02/2024 PROTIME-INR Routine 11/15/2024 9:28 PM CDT SCAN - LABS 10/28/2024 PROTIME-INR Routine 10/28/2024 PROTIME-INR Routine 10/14/2024 SCAN - LABS 09/30/2024 PROTIME-INR Routine 09/30/2024 SCAN - LABS 09/16/2024 PROTIME-INR Routine 09/16/2024 from Last 3 Months Results * (ABNORMAL) Protime-INR (12/02/2024) INR 2.80(A) 0.90 - 1.10 EXTERNAL LAB Blood Historical Provider MD LAB BLOOD ORDERABLES Clarice l Result EXTERNAL LAB * (ABNORMAL) Protime-INR (11/15/2024 9:28 PM CDT) INR 2.30(A) 0.90 - 1.10 EXTERNAL LAB Blood Historical Provider MD LAB BLOOD ORDERABLES Edit ed Result - Final EXTERNAL LAB * SCAN - LABS (10/28/2024) Provider Scanning Final Result * (ABNORMAL) Protime-INR (10/28/2024) INR 2.30(A) 0.90 - 1.10 EXTERNAL LAB Blood Result [facility] Provider MD LAB BLOOD ORDERABLES Clarice l Result Performing Organization Address [facility] de Phone Number EXTERNAL LAB * (ABNORMAL) Protime-INR (10/14/2024) INR 2.60(A) 0.90 - 1.10 EXTERNAL LAB Blood Result [facility] MD LAB BLOOD ORDERABLES Edit ed Result - Final Performing Organization Address [facility] de Phone Number EXTERNAL LAB * SCAN - LABS (09/30/2024) Result [facility] Provider Scanning Final Result * (ABNORMAL) Protime-INR (09/30/2024) INR 2.40(A) 0.90 - 1.10 EXTERNAL LAB Blood Result [facility] Provider MD LAB BLOOD ORDERABLES Clarice l Result Performing Organization Address [facility] Co de Phone Number EXTERNAL LAB * SCAN - LABS (09/16/2024) Provider Scanning Final Result * (ABNORMAL) Protime-INR (09/16/2024) INR 2.10(A) 0.90 - 1.10 EXTERNAL LAB Blood Result [facility] Provider MD LAB BLOOD ORDERABLES Clarice l Result Performing Organization Address [facility] Co de Phone Number EXTERNAL LAB from Last 3 Months Insurance ANTHEM MEDICARE HMO PPO AN[employer]M MEDICARE HMO PPO AN[employer]M MEDICARE HMO PPO Care Teams Backup Engineer Relationship Specialty Start Date End Date Boris Baum MD [address] [facility] [address] [place] [address] PCP - General Family Medicine 09/28/20
--- OUTSIDE RECORDS SUMMARY | 2024-12-10 10:23 | XMS_ITS | Encounter Summary ---
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
--- OUTSIDE RECORDS SUMMARY | 2024-12-10 10:23 | XMS_ITS | Encounter Summary ---
Author Organization [facility] Healthcare Address [address] [place] [address] Care Team Providers Care Apparel Manager Name Role Phone Boris Baum MD Primary Care Provider Encounter Details Date Type Department Care Team (Late st Contact Info) Description 09/06/[address] 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 Gender Identity Not on file Sexual Orientation Not on file documented as of this encounter Functional Status documented as of this encounter Plan of Treatment Not on file documented as of this encounter Procedures Procedure Name Priority Date/Time Associated Diagnosis Comments SCAN - LABS 09/06/2021 documented in this encounter Results * SCAN - LABS (09/06/2021) us Provider Scanning Edited Result - Final documented in this encounter Visit Diagnoses Not on filedocumented in this encounter Care Teams Apparel Manager Relationship Specialty Start Date End Date Boris Baum MD [address] [facility] [address] [place] [address] PCP - General Family Medicine 09/28/20 documented as of this encounter
== END 2024-12-10 09:56 | disposition home or self-care (01) ==
PROVIDERS: PCP Family Medicine; Visit Provider Family Medicine
DX: M54.2 Cervicalgia (principal)
CPT/HCPCS: 72040

== ENCOUNTER 2024-12-12 07:36 | Outpatient (CLI) | payer MEDICARE, SELFPAY ==
--- OUTSIDE RECORDS SUMMARY | 2024-12-12 07:40 | XMS_ITS | Encounter Summary ---
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
--- OUTSIDE RECORDS SUMMARY | 2024-12-12 07:40 | XMS_ITS | Clinical Summary ---
Author Organization [facility] Address [address] [facility] [place] [address] Care Team Providers Care Craft Center Director Name Role Phone Boris Baum MD Primary Care Provider [phone] Boris Baum MD Unavailable [phone] Source Comments [facility],non-owned Affiliates and Associated Physician Practices is amultiple site organization consisting of ambulatory clinics and hospital sitesin [place], [place] and [place]. This disclosure is being madepursuant to the Care Everywhere program and may not contain all information available regarding this patient. 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 Gender Identity Not on file Sexual Orientation Not on file Last Filed Vital Signs Vital Sign Reading Time Taken Comments Blood Pressure 144/84 03/15/2021 2:04 PM POWER PLANT OPERATOR APPRENTICE Pulse 78 03/15/2021 2:04 PM POWER PLANT OPERATOR APPRENTICE Temperature 36.4 C (97.5 F) 03/15/2021 2:04 PM POWER PLANT OPERATOR APPRENTICE Respiratory Rate 16 08/07/2018 8:06 AM CDT Oxygen Saturation 95% 03/15/2021 2:04 PM POWER PLANT OPERATOR APPRENTICE Inhaled Oxygen Concentration - - Weight 79.4 kg (175 lb) 03/15/2021 2:04 PM POWER PLANT OPERATOR APPRENTICE Height 157.5 cm (5' 2) 03/15/2021 2:04 PM POWER PLANT OPERATOR APPRENTICE Body Mass Index 32.01 03/15/2021 2:04 PM POWER PLANT OPERATOR APPRENTICE Plan of Treatment Health Maintenance Due Date [...] ANTHEM ANTHEM ANTHEM ANTHEM ANTHEM Care Teams Craft Center Director Relationship Specialty Start Date End Date Boris Baum MD [address] [place] [address] PCP - General 08/24/20 Boris Baum MD [address] [place] [address] 08/24/20
--- OUTSIDE RECORDS SUMMARY | 2024-12-12 07:40 | XMS_ITS | Encounter Summary ---
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
--- OUTSIDE RECORDS SUMMARY | 2024-12-12 07:40 | XMS_ITS | Encounter Summary ---
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
--- OUTSIDE RECORDS SUMMARY | 2024-12-12 07:40 | XMS_ITS | Encounter Summary ---
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
--- OUTSIDE RECORDS SUMMARY | 2024-12-12 07:40 | XMS_ITS | Encounter Summary ---
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
--- OUTSIDE RECORDS SUMMARY | 2024-12-12 07:40 | XMS_ITS | Encounter Summary ---
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
--- OUTSIDE RECORDS SUMMARY | 2024-12-12 07:40 | XMS_ITS | Encounter Summary ---
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
--- OUTSIDE RECORDS SUMMARY | 2024-12-12 07:40 | XMS_ITS | Encounter Summary ---
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
--- OUTSIDE RECORDS SUMMARY | 2024-12-12 07:40 | XMS_ITS | Encounter Summary ---
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
--- OUTSIDE RECORDS SUMMARY | 2024-12-12 07:40 | XMS_ITS | Encounter Summary ---
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 120 [place] [address] PCP - General Family Medicine 09/28/20 documented as of this encounter
--- OUTSIDE RECORDS SUMMARY | 2024-12-12 07:40 | XMS_ITS | Encounter Summary ---
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
--- OUTSIDE RECORDS SUMMARY | 2024-12-12 07:40 | XMS_ITS | Encounter Summary ---
Author Organization [facility] Healthcare Address [address] [place] [address] Care Team Providers Care Light Rail Operator Name Role Phone Boris Baum MD Primary Care Provider Encounter Details Date Type Department Care Team (Late st Contact Info) Description 07/08/[address] 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
--- OUTSIDE RECORDS SUMMARY | 2024-12-12 07:40 | XMS_ITS | Encounter Summary ---
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
--- OUTSIDE RECORDS SUMMARY | 2024-12-12 07:40 | XMS_ITS | Encounter Summary ---
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
--- OUTSIDE RECORDS SUMMARY | 2024-12-12 07:40 | XMS_ITS | Encounter Summary ---
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
--- OUTSIDE RECORDS SUMMARY | 2024-12-12 07:40 | XMS_ITS | Encounter Summary ---
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
--- OUTSIDE RECORDS SUMMARY | 2024-12-12 07:40 | XMS_ITS | Encounter Summary ---
Author Organization [facility] Healthcare Address [address] [place] [address] Care Team Providers Care Jewelry Manager Name Role Phone Boris Baum MD Primary Care Provider Encounter Details Date Type Department Care Team (Late st Contact Info) Description 12/12/2023 Orders Only 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
--- OUTSIDE RECORDS SUMMARY | 2024-12-12 07:40 | XMS_ITS | Encounter Summary ---
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
--- OUTSIDE RECORDS SUMMARY | 2024-12-12 07:40 | XMS_ITS | Encounter Summary ---
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
--- OUTSIDE RECORDS SUMMARY | 2024-12-12 07:40 | XMS_ITS | Encounter Summary ---
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
--- OUTSIDE RECORDS SUMMARY | 2024-12-12 07:40 | XMS_ITS | Encounter Summary ---
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
--- OUTSIDE RECORDS SUMMARY | 2024-12-12 07:40 | XMS_ITS | Encounter Summary ---
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
--- OUTSIDE RECORDS SUMMARY | 2024-12-12 07:40 | XMS_ITS | Encounter Summary ---
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
--- OUTSIDE RECORDS SUMMARY | 2024-12-12 07:41 | XMS_ITS | Encounter Summary ---
Author Organization [facility] Health Address [address] [facility] [place] [address] Care Team Providers Care Net Software Engineer Name Role Phone Boris Baum MD Primary Care Provider [phone] Boris Baum MD Unavailable [phone] Encounter Details Date Type Department Care Team (Late st Contact Info) Description 11/23/2021 Telephone [facility] [address] [place] [address] Darrian Hurst MD [address] [place] [address] [place] [address] Social History Tobacco Use Types Packs/Day Years Used Date Smoking Tobacco: Former Cigarettes Q uit: 04/10/1996 Smokeless Tobacco: Never Alcohol Use Standard Drinks/Week Comments Not Currently 0 (1 standard drink = 0.6 oz pur e alcohol) Comments No Sex and Gender Information Value Date Recorded Sex Assigned at Not on file 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 She can't continue to make the drive from [place]. The doctor's name is Francisco Javier Wilburn MD and [place] [address] [place] [address]. His phone number is [phone]. She did not have the fax number. Patient Call Back number: [phone] documented in this encounter Plan of Treatment Not on file documented as of this encounter Visit Diagnoses Not on filedocumented in this encounter Care Teams Net Software Engineer Relationship Specialty Start Date End Date Boris Baum MD [address] [place] [address] PCP - General 08/24/20 Boris Baum MD [address] [place] [address] 08/24/20 documented as of this encounter
--- OUTSIDE RECORDS SUMMARY | 2024-12-12 07:41 | XMS_ITS | Clinical Summary ---
Author Organization [facility] Address [address] [facility] [place] [address] Phone Care Team Providers Care Medication Manager Name Role Phone Boris Baum MD [...] Continue compression therapy, warfarin regimen per PCP emt intermediate (current) use of 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 2016 Osteopenia 07/19/2011 Hypothyroidism 07/19/2011 Encounters Date Type Department Care Team Description 12/02/2024 Anticoagulation Visit [facility] Cardiology [address] [place] [address] [place] [phone] Margareth Bear RN Chronic deep vein thrombosis (DVT) of proximal vein of left lower extremity (HCC) (Primary Dx); nursing home (current) use of 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 11/25/2024 10:15 AM CDT Office Visit [address] [phone] Fredy Rogers MD Essential hypertension (Primary Dx); Varicose veins of both lower extremities with pain; PVC's (premature ventricular contractions); Chronic deep vein thrombosis (DVT) of proximal vein of left lower extremity (HCC) 11/13/2024 Anticoagulation Visit [facility] Cardiology [address] [place] [phone] Margareth Bear RN Chronic deep vein thrombosis (DVT) of proximal vein of left lower extremity (HCC) (Primary Dx); nursing home (current) use of 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 10/28/2024 Orders Only [facility] [place] [address] [place] [phone] Scanning, Provider 10/28/2024 Anticoagulation Visit [facility] [address] [place] [address] [address] [place] [address] Quita Epperson RN Chronic deep vein thrombosis (DVT) of proximal vein of left lower extremity (HCC) (Primary Dx); emt intermediate (current) use of 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 10/14/2024 Anticoagulation Visit [facility]iology [address] [place] [address] [address] [place] [phone] Margareth Bear RN Chronic deep vein thrombosis (DVT) of proximal vein of left lower extremity (HCC) (Primary Dx); emt intermediate (current) use of 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 09/30/2024 Orders Only [facility] [place] Information Management [address] [place] [phone] Scanning, Provider 09/30/2024 Anticoagulation Visit [facility] [address] [place] [address] [place] [phone] Quita Epperson RN Chronic deep vein thrombosis (DVT) of proximal vein of left lower extremity (HCC) (Primary Dx); emt intermediate (current) use of 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 09/16/2024 Orders Only [facility] [place] Information Management [address] [place] [address] Scanning, Provider 09/16/2024 Anticoagulation Visit [facility] [address] [place] [address] [place] [phone] Quita Epperson RN Chronic deep vein thrombosis (DVT) of proximal vein of left lower extremity (HCC) (Primary Dx); emt intermediate (current) use of 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 from Last 3 [...] file Legal Sex Female 7:06 AM MANAGER PRACTICE Gender Identity Not on file Sexual [...] 03/22/2021, 01/14/2021 Medical Devices Implanted Type Area Candy Maker Device Identifier Shelf Expiration Date Model / [...] 0.90 - 1.10 EXTERNAL LAB Blood Result [facility] Provider MD LAB BLOOD ORDERABLES Clarice l Result Performing Organization Address [facility] de Phone Number EXTERNAL LAB * (ABNORMAL) Protime-INR (10/14/2024) INR 2.60(A) 0.90 - 1.10 EXTERNAL LAB Blood Result [facility] MD LAB BLOOD ORDERABLES Edit ed Result - Final Performing Organization Address [facility] de Phone Number EXTERNAL LAB * SCAN - LABS (09/30/2024) Result [facility] Provider Scanning Final Result * (ABNORMAL) Protime-INR (09/30/2024) INR 2.40(A) 0.90 - 1.10 EXTERNAL LAB Blood Result [facility] Provider MD LAB BLOOD ORDERABLES Clarice l Result Performing Organization Address [facility] Co de Phone Number EXTERNAL LAB * SCAN - LABS (09/16/2024) Provider Scanning Final Result * (ABNORMAL) Protime-INR (09/16/2024) INR 2.10(A) 0.90 - 1.10 EXTERNAL LAB Blood Result [facility] Provider MD LAB BLOOD ORDERABLES Clarice l Result Performing Organization Address [facility] Co de Phone Number EXTERNAL LAB from Last 3 Months Insurance [employer] MED[employer]ARE HMO PPO [employer] MED[employer] HMO PPO [employer] MED[employer]ARE HMO PPO Care Teams Medication Manager Relationship Specialty Start Date End Date Boris Baum MD [address] [facility] 120 [place] [address] PCP - General Family Medicine 09/28/20
[2024-12-12 08:15] LABS: Hematocrit 42.5 % (37.0-47.0); Hemoglobin 14.2 g/dL (12.0-15.0); Mean Corpuscular HGB Conc 33.4 g/dl (32-36); Mean Corpuscular Hemoglobin 30.2 pg (26-34); Mean Corpuscular Volume 90.4 fl (80-100); Platelet Count Result 211 k/mm3 (150-375); Red Blood Count 4.70 M/mm3 (4.2-5.4); White Blood Count 5.7 K/mm3 (4.5-10.0)
[2024-12-12 08:45] LABS: Alanine Aminotransferase 14 U/L (6-35); Albumin Level 4.0 g/dL (3.5-5.1); Alkaline Phosphatase 65 U/L (38-126); Anion Gap 6 mmol/L (4-12); Aspartate Amino Transferase 27 U/L (14-36); Bilirubin,Total 1.4 mg/dL (0.2-1.3); Blood Urea Nitrogen 11 mg/dL (7-17); Calcium 9.4 mg/dL (8.4-10.2); Carbon Dioxide 25 mmol/L (22-30); Chloride 98 mmol/L (98-107); Cholesterol 245 mg/dL (0-200); Estimated Glomerular Filt Rate > 60; Glucose 94 mg/dL (65-110); HDL Direct 94 mg/dL; Potassium 3.6 mmol/L (3.4-5.0); Sodium 129 mmol/L (137-145); Total Protein 7.2 g/dL (6.3-8.2); Triglycerides 84 mg/dL (<150)
[2024-12-12 09:21] LABS: Thyroid Stimulating Hormone 0.607 uIU/mL (0.465-4.680)
[2024-12-12 09:43] LABS: Add Urine Microscopic? YES; Appearance Urine Cloudy (Clear); Glucose Urine UA Negative (Negative); Leukocyte Esterase Ur 1+ LEU/UL (Negative); Need Manual Microscopic Reviewed; Nitrate Urine Negative (Negative); Non Pathogenic Casts 0-2; Specific Grav Ur 1.011 (1.001-1.035)
== END 2024-12-12 07:37 | disposition home or self-care (01) ==
LOC: ANHLAB 07:38
PROVIDERS: PCP Family Medicine; Visit Provider Family Medicine
DX: E03.9 Hypothyroidism, unspecified (principal); I10 Essential (primary) hypertension; R53.83 Other fatigue; E78.5 Hyperlipidemia, unspecified
CPT/HCPCS: 36415; 80053; 80061; 81001; 84443; 85027

== ENCOUNTER 2024-12-31 12:30 | Outpatient (CLI) | payer MEDICARE, SELFPAY ==
--- OUTSIDE RECORDS SUMMARY | 2024-12-31 12:43 | XMS_ITS | Encounter Summary ---
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
--- OUTSIDE RECORDS SUMMARY | 2024-12-31 12:43 | XMS_ITS | Encounter Summary ---
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
--- OUTSIDE RECORDS SUMMARY | 2024-12-31 12:43 | XMS_ITS | Encounter Summary ---
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 Gender Identity Not on file Sexual Orientation Not on file documented as of this encounter Plan of Treatment Not on file documented as of this encounter Procedures Procedure Name Priority Date/Time Associated Diagnosis Comments SCAN - LABS 05/22/2022 documented in this encounter Results * SCAN - LABS (05/22/2022) us Provider Scanning Final Result documented in this encounter Visit Diagnoses Not on filedocumented in this encounter Care Teams University Manager Relationship Specialty Start Date End Date Boris Baum MD [address] [facility] [address] [place] [address] PCP - General Family Medicine 09/28/20 documented as of this encounter
--- OUTSIDE RECORDS SUMMARY | 2024-12-31 12:43 | XMS_ITS | Encounter Summary ---
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
--- OUTSIDE RECORDS SUMMARY | 2024-12-31 12:43 | XMS_ITS | Encounter Summary ---
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 Gender Identity Not on file Sexual Orientation Not on file documented as of this encounter Plan of Treatment Not on file documented as of this encounter Procedures Procedure Name Priority Date/Time Associated Diagnosis Comments SCAN - LABS 09/25/2022 documented in this encounter Results * SCAN - LABS (09/25/2022) us Provider Scanning Final Result documented in this encounter Visit Diagnoses Not on filedocumented in this encounter Care Teams Botany Laboratory Assistant Relationship Specialty Start Date End Date Boris Baum MD [address] [facility] 120 [place] [address] PCP - General Family Medicine 09/28/20 documented as of this encounter
--- OUTSIDE RECORDS SUMMARY | 2024-12-31 12:43 | XMS_ITS | Encounter Summary ---
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
--- OUTSIDE RECORDS SUMMARY | 2024-12-31 12:43 | XMS_ITS | Encounter Summary ---
Author Organization 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 Gender Identity Not on file Sexual Orientation Not on file documented as of this encounter Plan of Treatment Not on file documented as of this encounter Procedures Procedure Name Priority Date/Time Associated Diagnosis Comments SCAN - LABS 10/23/2022 documented in this encounter Results * SCAN - LABS (10/23/2022) us Provider Scanning Final Result documented in this encounter Visit Diagnoses Not on filedocumented in this encounter Care Teams Civil Designer Relationship Specialty Start Date End Date Boris Baum MD [address] [facility] 120 [place] [address] PCP - General Family Medicine 09/28/20 documented as of this encounter
--- OUTSIDE RECORDS SUMMARY | 2024-12-31 12:43 | XMS_ITS | Encounter Summary ---
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
--- OUTSIDE RECORDS SUMMARY | 2024-12-31 12:43 | XMS_ITS | Encounter Summary ---
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 Gender Identity Not on file Sexual Orientation Not on file documented as of this encounter Plan of Treatment Not on file documented as of this encounter Procedures Procedure Name Priority Date/Time Associated Diagnosis Comments SCAN - LABS 10/09/2022 documented in this encounter Results * SCAN - LABS (10/09/2022) us Provider Scanning Final Result documented in this encounter Visit Diagnoses Not on filedocumented in this encounter Care Teams Manager Route Relationship Specialty Start Date End Date Boris Baum MD [address] [facility] 120 [place] [address] PCP - General Family Medicine 09/28/20 documented as of this encounter
--- OUTSIDE RECORDS SUMMARY | 2024-12-31 12:43 | XMS_ITS | Encounter Summary ---
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
--- OUTSIDE RECORDS SUMMARY | 2024-12-31 12:43 | XMS_ITS | Encounter Summary ---
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
--- OUTSIDE RECORDS SUMMARY | 2024-12-31 12:43 | XMS_ITS | Encounter Summary ---
Author Organization 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 Gender Identity Not on file Sexual Orientation Not on file documented as of this encounter Plan of Treatment Not on file documented as of this encounter Procedures Procedure Name Priority Date/Time Associated Diagnosis Comments SCAN - LABS 09/11/2022 documented in this encounter Results * SCAN - LABS (09/11/2022) us Provider Scanning Final Result documented in this encounter Visit Diagnoses Not on filedocumented in this encounter Care Teams Pharmaceutical Specialty Representative Relationship Specialty Start Date End Date Boris Baum MD [address] [facility] 120 [place] [address] PCP - General Family Medicine 09/28/20 documented as of this encounter
--- OUTSIDE RECORDS SUMMARY | 2024-12-31 12:43 | XMS_ITS | Encounter Summary ---
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 Gender Identity Not on file Sexual Orientation Not on file documented as of this encounter Plan of Treatment Not on file documented as of this encounter Procedures Procedure Name Priority Date/Time Associated Diagnosis Comments SCAN - LABS 04/24/2022 documented in this encounter Results * SCAN - LABS (04/24/2022) us Provider Scanning Final Result documented in this encounter Visit Diagnoses Not on filedocumented in this encounter Care Teams Director Of Donor Relations Relationship Specialty Start Date End Date Boris Baum MD [address] [facility] 120 [place] [address] PCP - General Family Medicine 09/28/20 documented as of this encounter
--- OUTSIDE RECORDS SUMMARY | 2024-12-31 12:43 | XMS_ITS | Encounter Summary ---
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
--- OUTSIDE RECORDS SUMMARY | 2024-12-31 12:43 | XMS_ITS | Encounter Summary ---
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
--- OUTSIDE RECORDS SUMMARY | 2024-12-31 12:43 | XMS_ITS | Encounter Summary ---
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
--- OUTSIDE RECORDS SUMMARY | 2024-12-31 12:43 | XMS_ITS | Encounter Summary ---
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
--- OUTSIDE RECORDS SUMMARY | 2024-12-31 12:43 | XMS_ITS | Encounter Summary ---
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
--- OUTSIDE RECORDS SUMMARY | 2024-12-31 12:43 | XMS_ITS | Encounter Summary ---
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
--- OUTSIDE RECORDS SUMMARY | 2024-12-31 12:43 | XMS_ITS | Encounter Summary ---
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
--- OUTSIDE RECORDS SUMMARY | 2024-12-31 12:43 | XMS_ITS | Encounter Summary ---
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
--- OUTSIDE RECORDS SUMMARY | 2024-12-31 12:43 | XMS_ITS | Encounter Summary ---
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
--- OUTSIDE RECORDS SUMMARY | 2024-12-31 12:43 | XMS_ITS | Clinical Summary ---
Author Organization [facility] Address [address] [facility] [place] [address] Care Team Providers Care Saw Filer Name Role Phone Boris Baum MD Primary Care Provider [phone] Boris Baum MD Unavailable [phone] Source Comments [facility],non-owned Affiliates and Associated Physician Practices is amultiple site organization consisting of ambulatory clinics and hospital sitesin [place], [place], [place] and [place]. This disclosure is being madepursuant to the Care Everywhere program and may not contain all information available regarding this patient. 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 Carotid stenosis, [...] on file Legal Sex Female 5:40 PM IN MOLD COATER Gender Identity Not on file Sexual Orientation Not on file Last Filed Vital Signs Vital Sign Reading Time Taken Comments Blood Pressure 144/84 03/15/2021 2:04 PM IN MOLD COATER Pulse 78 03/15/2021 2:04 PM IN MOLD COATER Temperature 36.4 C (97.5 F) 03/15/2021 2:04 PM IN MOLD COATER Respiratory Rate 16 08/07/2018 8:06 AM CDT Oxygen Saturation 95% 03/15/2021 2:04 PM IN MOLD COATER Inhaled Oxygen Concentration - - Weight 79.4 kg (175 lb) 03/15/2021 2:04 PM IN MOLD COATER Height 157.5 cm (5' 2) 03/15/2021 2:04 PM IN MOLD COATER Body Mass Index 32.01 03/15/2021 2:04 PM IN MOLD COATER Plan of Treatment Health Maintenance Due Date Last Done Comments BONE DENSITY TESTING 1943 DTAP/TDAP/TD VACCINES (1 - Tdap) 06/22/1962 PNEUMOCOCCAL VACCINE 50+ (2 of 2 - PCV) 02/01/2018 02/01/2017, 06/13/2014 Respiratory Syncytial Virus (RSV) Vaccine Pt: or over 60 yrs (1 - 1-dose 75+ series) 06/22/2018 ZOSTER VACCINE (2 of 2) 03/11/2021 01/14/2021 DEPRESSION SCREENING 04/10/2024 MEDICARE AWV CALENDAR YEAR 2024 COVID-19 VACCINE ( - season) 2024 INFLUENZA VACCINE (#1) 2024 , 02/07/2020, [...] ANTHEM ANTHEM ANTHEM ANTHEM ANTHEM Care Teams Saw Filer Relationship Specialty Start Date End Date Boris Baum MD [address] [place] [address] PCP - General 08/24/20 Boris Baum MD [address] [place] [address] 08/24/20
--- OUTSIDE RECORDS SUMMARY | 2024-12-31 12:43 | XMS_ITS | Encounter Summary ---
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
--- OUTSIDE RECORDS SUMMARY | 2024-12-31 12:43 | XMS_ITS | Encounter Summary ---
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
--- OUTSIDE RECORDS SUMMARY | 2024-12-31 12:43 | XMS_ITS | Encounter Summary ---
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 Gender Identity Not on file Sexual Orientation Not on file documented as of this encounter Plan of Treatment Not on file documented as of this encounter Procedures Procedure Name Priority Date/Time Associated Diagnosis Comments SCAN - LABS 08/14/2022 documented in this encounter Results * SCAN - LABS (08/14/2022) us Provider Scanning Final Result documented in this encounter Visit Diagnoses Not on filedocumented in this encounter Care Teams Balancer Scale Relationship Specialty Start Date End Date Boris Baum MD [address] [facility] [address] [place] [address] PCP - General Family Medicine 09/28/20 documented as of this encounter
--- OUTSIDE RECORDS SUMMARY | 2024-12-31 12:43 | XMS_ITS | Encounter Summary ---
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
--- OUTSIDE RECORDS SUMMARY | 2024-12-31 12:43 | XMS_ITS | Clinical Summary ---
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 ([facility]) 01/30/2020 Congestive heart failure wit h LV diastolic dysfunction, NYHA class 2 ([facility]) 01/30/2020 Sleep disturbance 01/30/2020 Hypothyroidism 12/26/2019 Essential hypertension 07/06/2017 Chronic deep vein thrombosis (DVT) of proximal vein of left lower extremity ([facility]) 12/27/2016 Anticoagulation monitoring, INR range 2-3 2016 Carotid stenosis, asymptomatic, bilateral 2016 Overview (12/26/2019): 1-49% stenosis seen on Carotid US Resolved Problems Problem Noted Date Diagnosed Date Resolved Date Health care maintenance 07/06/201712/09 Encounters Date Type Department Care Team Description 12/12/2024 6:05 AM CDT - 12/12/2024 11:59 PM CDT Hospital Encounter [facility] [place] [address] Boris Baum MD Discharge Disposition: Home or Self Care (Routine Discharge) 12/12/2024 Orders Only [facility] [address] Boris Baum MD 12/12/2024 Travel from Last 3 Months Family History Medical History Relation Comments kidney [...] Comments Blood Pressure 132/76 06/09/2022 2:41 PM EDUCATIONAL INSTITUTION PRESIDENT Pulse 72 06/09/2022 2:19 PM [facility]UCATIONAL INSTITUTION PRESIDENT Temperature 36.8 C (98.2 F) 06/09/2022 2:19 PM EDUCATIONAL INSTITUTION PRESIDENT Respiratory Rate 20 06/09/2022 2:19 PM EDUCATIONAL INSTITUTION PRESIDENT Oxygen Saturation 98% 06/09/2022 2:19 PM EDUCATIONAL INSTITUTION PRESIDENT Inhaled Oxygen Concentration - - Weight 78 kg (172 lb) 06/09/2022 2:19 PM [facility]UCATIONAL INSTITUTION PRESIDENT Height 157.5 cm (5' 2) 06/09/2022 2:19 PM EDUCATIONAL INSTITUTION PRESIDENT Body Mass Index 31.46 06/09/2022 2:19 PM EDUCATIONAL INSTITUTION PRESIDENT Plan of Treatment Upcoming Encounters Date Type Department Care Team (Late st Contact Info) Description 09/09/2025 8:00 AM CDT Appointment [facility] Mammography [address] [place], [place] [id number] Lyndon Williamson MD [address] [address] Health Maintenance Due Date Last Done Comments DTaP, Tdap and Td Vaccines ( 1 - Tdap) 05/03/1997 05/02/1997 Pneumococcal Vaccine: 50+ Years (2 of 2 - PCV) 02/01/2018 02/01/2017, 01/24/2012 RSV Immunization or 60+ Years (1 - 1-dose 75+ series) 06/22/2018 Zoster Vaccines (2 of 2) 03/11/2021 01/14/2021 COVID-19 Vaccine (1 - 2023-2 5 season) 2024 Dexa Scan (General) Completed 12/12/2019 Meningococcal B Vaccine Aged Out No l onger eligible based on patient's age to complete this topic Meningococcal Vaccine Aged Out No ravi nisreen eligible based on patient's age to complete this topic RSV Immunizations Under 20 Months Aged Out No longer eligible b ased on patient's age to complete this topic Procedures Procedure Name Priority Date/Time Associated Diagnosis Comments THYROID STIM HORMONE TSH Routine 12/12/2024 6:20 AM CDT Essential (primary) hypertension Hypothyroidism, unspecified Fatigue Hyperlipemia HC URINALYSIS AUTO W/O MICRO Routine 12/12/2024 6:15 AM CDT Essential (primary) hypertension Hypothyroidism, unspecified Fatigue Hyperlipemia BONE DENSITY/DEXA Routine 12/12/2019 9:2 5 AM CDT Age-related osteoporosis without current pathological fracture from Last 3 Months or Most Recently Relevant to Health Maintenance Results * THYROID STIM HORMONE TSH (12/12/2024 6:20 AM CDT) TSH 0.792 0.358 - 3.74 uIU/ML 12/12/2024 8:11 AM CDT [facility] Comment: HIGH DOSES OF BIOTIN MAY INTERFERE WITH THIS TEST RESULT. CORRELATION TO CLINICAL HISTORY AND PRESENTATION RECOMMENDED. 12/12/2024 6:20 AM CDT Boris Baum MD LABORATORY Final Result [facility] [address] [place] [address], [place] [phone] * (ABNORMAL) URINALYSIS (12/12/2024 6:15 AM CDT) SPECIMEN TYPE URINE CLEAN CATCH 12/12/2024 6:09 AM CDT [facility] COLOR (U) YELLOW 12/12/2024 7:04 AM CDT [facility] TRANSPARENCY TURBID 12/12/2024 7:04 AM CDT [facility] SPECIFIC GRAVITY (U) 1.013 1.001 - 1.030 12/12/2024 7:04 AM CDT [facility] U PH 7.0 5.0 - 9.0 12/12/2024 7:04 AM CDT [facility] LEUKOCYTES (U) 75(A) NEGATIVE 12/12/2024 7:04 AM CDT [facility] NITRITES NEGATIVE NEGATIVE 12/12/2024 7:04 AM CDT [facility] PROTEIN RANDOM (U) NEGATIVE <30 MG/DL 12/12/2024 7:04 AM CDT [facility] GLUCOSE (U) NORMAL NORMAL MG/DL 12/12/2024 7:04 AM CDT [facility] KETONES MG/DL (U) NEGATIVE NEGATIVE MG/DL 12/12/2024 7:04 AM CDT [facility] UROBILINOGEN NORMAL NORMAL MG/DL 12/12/2024 7:04 AM CDT [facility] BILIRUBIN (U) NEGATIVE NEGATIVE MG/DL 12/12/2024 7:04 AM CDT [facility] BLOOD (U) TRACE(A) NEGATIVE 12/12/2024 7:04 AM CDT [facility] TRANSITIONAL EPI RARE /HPF 12/13/19 7:04 AM CDT [facility] WBC/HPF 5 <6 /HPF 12/12/2024 7:04 AM CDT [facility] RBC/HPF 2 <6 /HPF 12/12/2024 7:04 AM CDT [facility] BACTERIA (U) RARE(A) NONE /HPF 12/12/2024 7:04 AM CDT [facility] SQUAMOUS EPITHELIALS RARE /HPF 12/12/2024 7:04 AM CDT [facility] URINE SPECIMEN OBTAINED BY CLEAN CATCH PROCEDURE / Unknown 12/12/2024 6:15 AM CDT us Boris Baum MD URINE ORDERABLES Final Result [facility] [address] [place] [address], [place] [phone] * BONE DENSITY/DEXA (12/12/2019 9:25 AM CDT) [...] Most Recently Relevant to Health Maintenance Insurance [facility] Care Teams Treating Plant Supervisor Relationship Specialty Start Date End Date Boris Baum MD [address] [place] [address] PCP - General FAMILY PRACTICE 03/03/21 Katherin Turner MD [facility]. [facility] [address] [place] [address] Ting Vmware Administrator CARDIOVASCULAR DISEASE 04/10/17
--- OUTSIDE RECORDS SUMMARY | 2024-12-31 12:43 | XMS_ITS | Encounter Summary ---
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
--- OUTSIDE RECORDS SUMMARY | 2024-12-31 12:43 | XMS_ITS | Encounter Summary ---
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
--- OUTSIDE RECORDS SUMMARY | 2024-12-31 12:43 | XMS_ITS | Encounter Summary ---
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
--- OUTSIDE RECORDS SUMMARY | 2024-12-31 12:44 | XMS_ITS | Clinical Summary ---
Author Organization [facility] Address [address] [facility] [place] [address] Phone Care Team Providers Care Pharmacy Helper Name Role Phone Boris Baum MD Primary Care Provider Allergies No known active allergies Medications calcium carbonate-vitamin D3 500 mg(1,250mg) -400 unit tablet Take 1 tablet by mouth . 12/23/19 17 Active levothyroxine (SYNTHROID, LEVOTHROID) 50 mcg tablet Take 1 tablet (50 mcg total) by mouth 12/23/19 17 Active indapamide (LOZOL) 2.5 mg tablet Take 1 tablet (2.5 mg total) by mouth Active calcitonin (MIACALCIN) 200 unit/actuation nasal spray Administer 1 spray into affected nostril(s) 12/23/19 17 Active HYDROcodone-aceta minophen (NORCO) 5-325 mg per tabletIndications :Pain Take 1 tablet by mouth every 6 (six) hours as needed for pain 20 tablet 11/23/19 22 Active losartan (Cozaar) 25 mg tablet Take 1 tablet (25 mg total) by mouth daily Active warfarin (COUMADIN) 5 mg tabletIndications :Chronic deep vein thrombosis (DVT) of proximal vein of left lower extremity (HCC),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 Take 1 by mouth once a day or as directed 90 tablet 12/24/19 25 Active warfarin (COUMADIN) 5 mg tabletIndications :Prevention of Recurrent Venous Thrombosis in Malignancy Take 2.5 mg every Shelbie; 5 mg all other days 90 tablet 10/29/19 25 2024 Discontinued Active Problems Problem Noted Date Diagnosed Date [...] Continue compression therapy, warfarin regimen per PCP 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 Osteopenia 07/19/2011 Hypothyroidism 07/19/2011 Encounters Date Type Department Care Team Description 12/30/2024 Anticoagulation Visit [facility] Cardiology [address] [facility] [address] [place] [phone] Mimi Larkin RN Chronic deep vein thrombosis (DVT) of proximal vein of left lower extremity (HCC) (Primary Dx); [facility] (current) use of 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 12/17/2024 Orders Only [facility] Health Information Management [address] [place] [address] Scanning, Provider 12/16/2024 Anticoagulation Visit [facility] Cardiology [address] [place] [phone] Mimi Larkin eyelet maker deep vein thrombosis (DVT) of proximal vein of left lower extremity (HCC) (Primary Dx); [facility] (current) use of 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 12/02/2024 Orders Only [facility] Information [employer] [address] [place] [address] Scanning, Provider 12/02/2024 Anticoagulation Visit [facility] Cardiology [address] [place] [phone] Margareth Bear RN Chronic deep vein thrombosis (DVT) of proximal vein of left lower extremity (HCC) (Primary Dx); 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 11/25/2024 10:15 AM CDT Office Visit [facility] Cardiology [address] [place] [address] [place] [phone] Fredy Rogers MD Essential hypertension (Primary Dx); Varicose veins of both lower extremities with pain; PVC's (premature ventricular contractions); Chronic deep vein thrombosis (DVT) of proximal vein of left lower extremity (HCC) 11/13/2024 Anticoagulation Visit [place] [address] [place] [phone] Margareth Bear RN Chronic deep vein thrombosis (DVT) of proximal vein of left lower extremity (HCC) (Primary Dx); [facility] (current) use of 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 10/28/2024 Orders Only [facility] Information Management [address] [place] [address] Scanning, Provider 10/28/2024 Anticoagulation Visit [place] [address] [place] [address] [phone] Quita Epperson RN Chronic deep vein thrombosis (DVT) of proximal vein of left lower extremity (HCC) (Primary Dx); 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 10/14/2024 Anticoagulation Visit [address] [phone] Margareth Bear RN Chronic deep vein thrombosis (DVT) of proximal vein of left lower extremity (HCC) (Primary Dx); 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 09/30/2024 Orders Only [facility] Information Management [address] [place] [address] Scanning, Provider 09/30/2024 Anticoagulation Visit [place] [address] [place] [phone] Zeenat, Quita N., eyelet maker deep vein thrombosis (DVT) of proximal vein of left lower extremity (HCC) (Primary Dx); [facility] (current) use of 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 from Last 3 [...] on file 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 Gender Identity Not on file Sexual [...] Risk Assessment 11/22/2022 11/22/2021 Covid-19 Vaccine (3 2024-2 6 season) 2024 06/06/2020, 05/09/2020 Influenza Vaccine (#1) 2024 , 02/07/2020, 01/11/2019, Additional history exists Zoster Vaccine Completed 03/22/2021, 01/14/2021 Medical Devices Implanted Type Area Electrotype Caster Device Identifier Shelf Expiration Date Model / Serial / Lot Other - See Comments Other - see comments Right: Breast Description:Right breast imp lant Procedures Procedure Name Priority Date/Time Associated Diagnosis Comments PROTIME-INR Routine 12/30/2024 SCAN - LABS 12/17/2024 PROTIME-INR Routine 12/16/2024 SCAN - LABS 12/02/2024 PROTIME-INR Routine 12/02/2024 PROTIME-INR Routine 11/15/2024 9:28 PM CDT SCAN - LABS 10/28/2024 PROTIME-INR Routine 10/28/2024 PROTIME-INR Routine 10/14/2024 SCAN - LABS 09/30/2024 PROTIME-INR Routine 09/30/2024 from Last 3 Months Results * (ABNORMAL) Protime-INR (12/30/2024) INR 2.80(A) 0.90 - 1.10 EXTERNAL LAB Blood 12/30/2024 Result [facility] Provider MD LAB BLOOD ORDERABLES Clarice l Result Performing Organization Address [facility] Co de Phone Number EXTERNAL LAB * SCAN - LABS (12/17/2024) Result [facility] Provider Scanning Final Result * (ABNORMAL) Protime-INR (12/16/2024) INR 2.20(A) 0.90 - 1.10 EXTERNAL LAB Blood 12/16/2024 Result [facility] Provider MD LAB BLOOD ORDERABLES Clarice l Result Performing Organization Address [facility] de Phone Number EXTERNAL LAB * SCAN - LABS (12/02/2024) Result [facility] Provider Scanning Final Result * (ABNORMAL) Protime-INR (12/02/2024) INR 2.80(A) 0.90 - 1.10 EXTERNAL LAB Blood Result [facility] Provider MD LAB BLOOD ORDERABLES Clarice l Result Performing Organization Address [facility] de Phone Number EXTERNAL LAB * (ABNORMAL) Protime-INR (11/15/2024 9:28 PM CDT) INR 2.30(A) 0.90 - 1.10 EXTERNAL LAB Blood Result [facility] Provider MD LAB BLOOD ORDERABLES Edit ed Result - Final Performing Organization Address [facility] Co de Phone Number EXTERNAL LAB * SCAN - LABS (10/28/2024) Result [facility] Provider Scanning Final Result * (ABNORMAL) Protime-INR (10/28/2024) INR 2.30(A) 0.90 - 1.10 EXTERNAL LAB Blood Result [facility] Historical Provider MD LAB BLOOD ORDERABLES Clarice l Result EXTERNAL LAB * (ABNORMAL) Protime-INR (10/14/2024) INR 2.60(A) 0.90 - 1.10 EXTERNAL LAB Blood Result [facility] Provider MD LAB BLOOD ORDERABLES Edit ed Result - Final Performing Organization Address [facility]/ZIP Co de Phone Number EXTERNAL LAB * SCAN - LABS (09/30/2024) Provider Scanning Final Result * (ABNORMAL) Protime-INR (09/30/2024) INR 2.40(A) 0.90 - 1.10 EXTERNAL LAB Blood Result [facility] Provider MD LAB BLOOD ORDERABLES Clarice l Result Performing Organization Address [facility]/ZIP Co de Phone Number EXTERNAL LAB from Last 3 Months Insurance [employer] HMO PPO [employer] HMO PPO [employer] HMO PPO Care Teams Pharmacy Helper Relationship Specialty Start Date End Date Boris Baum MD [address] [facility] [address] [place] [address] PCP - General Family Medicine 09/28/20
--- OUTSIDE RECORDS SUMMARY | 2024-12-31 12:44 | XMS_ITS | Encounter Summary ---
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 Gender Identity Not on file Sexual Orientation Not on file documented as of this encounter Plan of Treatment Not on file documented as of this encounter Procedures Procedure Name Priority Date/Time Associated Diagnosis Comments SCAN - LABS 05/03/2023 documented in this encounter Results * SCAN - LABS (05/03/2023) us Provider Scanning Final Result documented in this encounter Visit Diagnoses Not on filedocumented in this encounter Care Teams Staker Surveying Relationship Specialty Start Date End Date Boris Baum MD [address] [facility] [address] [place] [address] PCP - General Family Medicine 09/28/20 documented as of this encounter
--- OUTSIDE RECORDS SUMMARY | 2024-12-31 12:44 | XMS_ITS | Encounter Summary ---
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 Gender Identity Not on file Sexual Orientation Not on file documented as of this encounter Plan of Treatment Not on file documented as of this encounter Procedures Procedure Name Priority Date/Time Associated Diagnosis Comments SCAN - LABS 01/08/2023 documented in this encounter Results * SCAN - LABS (01/08/2023) us Provider Scanning Final Result documented in this encounter Visit Diagnoses Not on filedocumented in this encounter Care Teams Laminating Machine Operator Relationship Specialty Start Date End Date Boris Baum MD [address] [facility] [address] [place] [address] PCP - General Family Medicine 09/28/20 documented as of this encounter
--- OUTSIDE RECORDS SUMMARY | 2024-12-31 12:44 | XMS_ITS | Encounter Summary ---
Author Organization [facility] Health Address [address] [facility] [place] [address] Care Team Providers Care Convenience Store Clerk Name Role Phone Boris Baum MD Primary Care Provider [phone] Boris Baum MD Unavailable [phone] Encounter Details Date Type Department Care Team (Late st Contact Info) Description 11/23/2021 Telephone [facility] [address] [place] [address] Darrian Hurst MD [address] [place] [address] [place] [address] Social History Tobacco Use Types Packs/Day Years Used Date Smoking Tobacco: Former Cigarettes Q uit: 04/10/1996 Smokeless Tobacco: Never Alcohol Use Standard Drinks/Week Comments Not Currently 0 (1 standard drink = 0.6 oz pur e alcohol) Comments No Sex and Gender Information Value Date Recorded Sex Assigned at Not on file 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 She can't continue to make the drive from [place]. The doctor's name is Francisco Javier Wilburn MD and he is [place] at [address] [place] [address]. His phone number is [phone]. She did not have the fax number. Patient Call Back number: [phone] documented in this encounter Plan of Treatment Not on file documented as of this encounter Visit Diagnoses Not on filedocumented in this encounter Care Teams Convenience Store Clerk Relationship Specialty Start Date End Date Boris Baum MD [address] [place] [address] PCP - General 08/24/20 Boris Baum MD [address] [place] [address] 08/24/20 documented as of this encounter
--- OUTSIDE RECORDS SUMMARY | 2024-12-31 12:44 | XMS_ITS | Encounter Summary ---
Author Organization [facility] Address [address] [place] [address] Care Team Providers Care Statement Clerk Name Role Phone Boris Baum MD Primary Care Provider [phone] Katherin Turner MD Unavailable [phone] Carmelita Easley MD Primary Care Provider [phone] Boris Baum MD Primary Care Provider [phone] Encounter Details Date Type Department Care Team (Latest Contact Info) Description 02/13/2018 Abstract [facility] , Nishant Bledsoe MD Social [...] Info) Description 09/09/2025 8:00 AM CDT Appointment [facility] Mammography [address] [facility] [address] Lyndon Williamson MD [facility] [address] [address] documented as of this encounter Visit Diagnoses Not on filedocumented in this encounter Care Teams Statement Clerk Relationship Specialty Start Date End Date Boris Baum MD [address] [facility] [address] [place] [address] PCP - General FAMILY PRACTICE 02/27/17 06/12/19 Carmelita Easley MD [facility]. [facility] [address] [place] [address] PCP - General FAMILY PRACTICE 06/13/19 03/02/21 Boris Baum MD [address] [facility] [address] [place] [address] PCP - General FAMILY PRACTICE 03/03/21 Katherin Turner MD [facility]. [facility] [address] [place] [address] iTng Conciliator CARDIOVASCULAR DISEASE 04/10/17 documented as of this encounter
--- OUTSIDE RECORDS SUMMARY | 2024-12-31 12:44 | XMS_ITS | Encounter Summary ---
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 Gender Identity Not on file Sexual Orientation Not on file documented as of this encounter Plan of Treatment Not on file documented as of this encounter Procedures Procedure Name Priority Date/Time Associated Diagnosis Comments SCAN - LABS 11/30/2022 documented in this encounter Results * SCAN - LABS (11/30/2022) us Provider Scanning Final Result documented in this encounter Visit Diagnoses Not on filedocumented in this encounter Care Teams Senior Enlisted Advisor Relationship Specialty Start Date End Date Boris Baum MD [address] [facility] [address] [place] [address] PCP - General Family Medicine 09/28/20 documented as of this encounter
--- OUTSIDE RECORDS SUMMARY | 2024-12-31 12:44 | XMS_ITS | Encounter Summary ---
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 Gender Identity Not on file Sexual Orientation Not on file documented as of this encounter Plan of Treatment Not on file documented as of this encounter Procedures Procedure Name Priority Date/Time Associated Diagnosis Comments SCAN - LABS 05/02/2022 documented in this encounter Results * SCAN - LABS (05/02/2022) us Provider Scanning Final Result documented in this encounter Visit Diagnoses Not on filedocumented in this encounter Care Teams Wildland Fire Fighter Relationship Specialty Start Date End Date Boris Baum MD [address] [facility] [address] [place] [address] PCP - General Family Medicine 09/28/20 documented as of this encounter
--- OUTSIDE RECORDS SUMMARY | 2024-12-31 12:44 | XMS_ITS | Encounter Summary ---
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
--- OUTSIDE RECORDS SUMMARY | 2024-12-31 12:44 | XMS_ITS | Encounter Summary ---
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 Gender Identity Not on file Sexual Orientation Not on file documented as of this encounter Plan of Treatment Not on file documented as of this encounter Procedures Procedure Name Priority Date/Time Associated Diagnosis Comments SCAN - LABS 01/18/2023 documented in this encounter Results * SCAN - LABS (01/18/2023) us Provider Scanning Final Result documented in this encounter Visit Diagnoses Not on filedocumented in this encounter Care Teams Director Of Radiology Relationship Specialty Start Date End Date Boris Baum MD [address] [facility] [address] [place] [address] PCP - General Family Medicine 09/28/20 documented as of this encounter
--- OUTSIDE RECORDS SUMMARY | 2024-12-31 12:44 | XMS_ITS | Encounter Summary ---
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 Gender Identity Not on file Sexual Orientation Not on file documented as of this encounter Plan of Treatment Not on file documented as of this encounter Procedures Procedure Name Priority Date/Time Associated Diagnosis Comments SCAN - LABS 02/12/2023 documented in this encounter Results * SCAN - LABS (02/12/2023) us Provider Scanning Final Result documented in this encounter Visit Diagnoses Not on filedocumented in this encounter Care Teams Chain Maker Hand Relationship Specialty Start Date End Date Boris Baum MD [address] [facility] [address] [place] [address] PCP - General Family Medicine 09/28/20 documented as of this encounter
--- OUTSIDE RECORDS SUMMARY | 2024-12-31 12:44 | XMS_ITS | Encounter Summary ---
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 Gender Identity Not on file Sexual Orientation Not on file documented as of this encounter Plan of Treatment Not on file documented as of this encounter Procedures Procedure Name Priority Date/Time Associated Diagnosis Comments SCAN - LABS 02/26/2023 documented in this encounter Results * SCAN - LABS (02/26/2023) us Provider Scanning Final Result documented in this encounter Visit Diagnoses Not on filedocumented in this encounter Care Teams Wearing Apparel Shaker Relationship Specialty Start Date End Date Boris Baum MD [address] [facility] [address] [place] [address] PCP - General Family Medicine 09/28/20 documented as of this encounter
--- OUTSIDE RECORDS SUMMARY | 2024-12-31 12:44 | XMS_ITS | Encounter Summary ---
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 Gender Identity Not on file Sexual Orientation Not on file documented as of this encounter Plan of Treatment Not on file documented as of this encounter Procedures Procedure Name Priority Date/Time Associated Diagnosis Comments SCAN - LABS 12/04/2022 documented in this encounter Results * SCAN - LABS (12/04/2022) us Provider Scanning Final Result documented in this encounter Visit Diagnoses Not on filedocumented in this encounter Care Teams Resistance Brazer Relationship Specialty Start Date End Date Boris Baum MD [address] [facility] [address] [place] [address] PCP - General Family Medicine 09/28/20 documented as of this encounter
--- OUTSIDE RECORDS SUMMARY | 2024-12-31 12:44 | XMS_ITS | Encounter Summary ---
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 Gender Identity Not on file Sexual Orientation Not on file documented as of this encounter Plan of Treatment Not on file documented as of this encounter Procedures Procedure Name Priority Date/Time Associated Diagnosis Comments SCAN - LABS 03/25/2024 documented in this encounter Results * SCAN - LABS (03/25/2024) us Provider Scanning Final Result documented in this encounter Visit Diagnoses Not on filedocumented in this encounter Care Teams Buyer Relationship Specialty Start Date End Date Boris Baum MD [address] [facility] [address] [place] [address] PCP - General Family Medicine 09/28/20 documented as of this encounter
--- OUTSIDE RECORDS SUMMARY | 2024-12-31 12:44 | XMS_ITS | Encounter Summary ---
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 Social History Tobacco Use Types Packs/Day Years [...] on file 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 Gender Identity Not on file Sexual Orientation Not on file documented as of this encounter Plan of Treatment Not on file documented as of this encounter Procedures Procedure Name Priority Date/Time Associated Diagnosis Comments PROTIME-INR Routine 12/30/2024 documented in this encounter Results * (ABNORMAL) Protime-INR (12/30/2024) INR 2.80(A) 0.90 - 1.10 EXTERNAL LAB Blood 12/30/2024 us Historical Provider LAB BLOOD ORDERABLES Clarice sheikh Result EXTERNAL LAB documented in this encounter Visit Diagnoses Diagnosis Chronic deep vein thrombosis (DVT) of proximal vein of left lower extremity (HCC)- Primary terminal make up operator (current) use of 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 Long-term (current) use of 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 documented in this encounter Care Teams Grapple Crew Leader Relationship Specialty Start Date End Date Boris Baum MD [address] [place] [id number] PCP - General Family Medicine 09/28/20 documented as of this encounter
--- OUTSIDE RECORDS SUMMARY | 2024-12-31 12:44 | XMS_ITS | Encounter Summary ---
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 Gender Identity Not on file Sexual Orientation Not on file documented as of this encounter Plan of Treatment Not on file documented as of this encounter Procedures Procedure Name Priority Date/Time Associated Diagnosis Comments SCAN - LABS 12/18/2022 documented in this encounter Results * SCAN - LABS (12/18/2022) us Provider Scanning Final Result documented in this encounter Visit Diagnoses Not on filedocumented in this encounter Care Teams Blueprint Assembler Relationship Specialty Start Date End Date Boris Baum MD [address] [facility] [address] [place] [address] PCP - General Family Medicine 09/28/20 documented as of this encounter
[2024-12-31 13:49] LABS: Anion Gap 5 mmol/L (4-12); Blood Urea Nitrogen 14 mg/dL (7-17); Calcium 9.3 mg/dL (8.4-10.2); Carbon Dioxide 28 mmol/L (22-30); Chloride 97 mmol/L (98-107); Estimated Glomerular Filt Rate > 60; Glucose 94 mg/dL (65-110); Potassium 3.8 mmol/L (3.4-5.0); Sodium 130 mmol/L (137-145)
== END 2024-12-31 12:31 | disposition home or self-care (01) ==
PROVIDERS: PCP Family Medicine; Visit Provider Physician Assistant
DX: E87.1 Hypo-osmolality and hyponatremia (principal)
CPT/HCPCS: 36415; 80048

== ENCOUNTER 2025-01-27 08:56 | Outpatient (CLI) | payer MEDICARE, SELFPAY ==
[2025-01-27 10:20] LABS: Anion Gap 7 mmol/L (4-12); Blood Urea Nitrogen 15 mg/dL (7-17); Calcium 9.2 mg/dL (8.4-10.2); Carbon Dioxide 28 mmol/L (22-30); Chloride 98 mmol/L (98-107); Estimated Glomerular Filt Rate > 60; Glucose 92 mg/dL (65-110); Potassium 4.0 mmol/L (3.4-5.0); Sodium 133 mmol/L (137-145)
== END 2025-01-27 08:57 | disposition home or self-care (01) ==
PROVIDERS: PCP Family Medicine; Visit Provider Physician Assistant
DX: E87.1 Hypo-osmolality and hyponatremia (principal)
CPT/HCPCS: 36415; 80048